=== PATIENT | male | born 1960 | race Caucasian/White ===

== ENCOUNTER → 2016-09-18 | Outpatient (CLI) | payer OTHER | LOC: BMCIMAGING 09:52 | PROVIDERS: ATTEND Internal Medicine | DX: M81.0 Age-related osteoporosis without current pathological fracture (principal) ==

== ENCOUNTER 2017-06-26 13:44 | Emergency (ER) | payer OTHER ==
[2017-06-26 13:52] VITALS: BP 138/82; PULSE 74; RESP 17; TEMP 98.2; O2SAT 98
[2017-06-26] MEDS ORDERED: TDAP ADULT 0.5 ML INJ (BOOSTRIX) IM ONE (14:36)
--- NOTE | 2017-06-26 15:39 | EDPHY ---
General Narrative: CHIEF COMPLAINT: Leg laceration HISTORY OF PRESENT ILLNESS: Patient complains of right calf laceration. He was walking in his home this morning when he stepped on the power cord on a jig saw, causing it to fall off a table and striking him in the right calf. Moderate bleeding from a laceration. Bleeding stopped after simple pressure. No numbness. Some tingling of the bottom of the right foot which has improved. No bony tenderness. No foreign body. Pain is minimal at rest. It is moderate when he walks. Tetanus status is in question no other associated complaints or modifying factors. TIME OF INJURY: Less than 2 hours prior to arrival TETANUS STATUS: Constant MEDICAL/SURGICAL/SOCIAL HISTORY: Asthma. Works as a director of software development REVIEW OF SYSTEMS: Ten systems reviewed and are negative unless otherwise noted in the HPI EXAMINATION General Appearance: Alert, no distress Head: normocephalic, atraumatic Cardiovascular: Pulses normal throughout. Symmetric DP pulses 2+. Symmetric PT pulses 2+. Brisk cap refill Neurological: A&O, sensory symmetric, strength symmetric. No evidence Skin: Warm and dry, no rash. No abrasions. 2.5 cm laceration on the right posterior calf. No bleeding. No foreign body. No surrounding cellulitis. Extremities: Tenderness over the right calf laceration. There is normal dorsiflexion and plantar flexion of the right ankle without deficit. Neuro intact distally. DIFFERENTIAL DIAGNOSES: Including but not limited to laceration, laceration with tendon injury, laceration complication, gastroc MDM: 2:30 p.m. Laceration to right posterior calf. Neuro intact. Minimal pain. No risk of foreign body. No bony injury or trauma. Area has been anesthetized. Uncertain about his tetanus status, thus we will update here. Proceed with irrigation and closure. 3:30 p.m. Simple laceration of the right calf that has been repaired without difficulty. Tolerated well. Fully ambulatory. Neuro intact pre and postprocedure. Daily wound care discussed. ED precautions discussed. Return to ER in 7-10 days days for suture removal. PROCEDURE: Laceration repair Consent: Verbal Location: Right calf Length of repair: 2.5 cm Complexity: Simple Layer involvement: Single Anesthesia: Local per 1% lidocaine with epinephrine. 7 mL Irrigation: Extensive Debridement: None Procedure description: Following good anesthesia, the wound was copiously irrigated. Wound bed was explored and there is no foreign body noted. No compromise of the calf muscle. Wound borders were approximated well with good hemostasis. Tolerated well without complication. Suture/Staple material: 4-0 Prolene. Five simple interrupted sutures Wound care: Routine as discussed Suture/Staple removal: 7-10 Days ED Precautions: Worsening pain. Erythema, edema, cyanosis, pallor, paresthesia or anesthesia. - History Smoking Status: Never smoked - Objective Vital Signs: Initial Vital Signs Temperature (C) 98.2 F 06/26/17 13:50 Heart Rate 74 06/26/17 13:50 Respiratory Rate 17 06/26/17 13:50 Blood Pressure 138/82 H 06/26/17 13:50 O2 Sat (%) 98 06/26/17 13:50 O2 Delivery Mode Room Air Allergies/Adverse Reactions: No Known Allergies Allergy (Verified 06/26/17 13:49) Home Medications: Medication Instructions Recorded Albuterol 06/26/17 Ambien 06/26/17 Departure - Departure Disposition: Home, Routine, Self-Care Clinical Impression: Laceration of right calf without complication Qualifiers: Encounter type: initial encounter Qualified Code(s): S81.811A - Laceration without foreign body, right lower leg, initial encounter Condition: Good Instructions: Laceration (ED), Care For Your Stitches (ED) Additional Instructions: 1. Daily wound care as discussed 2. ED precautions as discussed 3. Suture removal in 7-10 days Referrals: Kyler Dhillon MD [Primary Care Provider] - As per Instructions Physician,Emergency DeptMD [Medical Doctor] - As per Instructions (7-10 days for suture removal)
== END 2017-06-26 15:44 | disposition home or self-care (01) ==
PROC: 0HQKXZZ Repair Right Lower Leg Skin, External Approach (ICD-10-PCS; principal; 2017-06-26)
DX: S81.811A Laceration without foreign body, right lower leg, initial encounter (principal); Z23 Encounter for immunization; W01.198A Fall on same level from slipping, tripping and stumbling with subsequent striking against other object, initial encounter; Y99.8 Other external cause status; Y93.89 Activity, other specified

== ENCOUNTER 2018-01-03 19:07 | Inpatient (IN) | payer OTHER ==
[2018-01-03] MEDS ORDERED: LORazepam 2 MG/ML INJ ONE (19:13)
[2018-01-03] MEDS ORDERED: NS 1,000 ML IV ONE ×3 (19:15→20:50)
[2018-01-03] MEDS ORDERED: LORazepam 2 MG/ML INJ IVP ONE (19:20)
--- NOTE | 2018-01-03 19:27 | EDPHY ---
H & P Time Seen by Provider: 01/03/18 19:16 HPI/ROS: HPI Syncope, altered mental status. 57-year-old male by ambulance emergently. Patient was at home reportedly sitting on a couch in the living room working on a computer. His had just asked him If pasta was okay for dinner. He replied "yes, pasta would be great" . His states there was nothing abnormal about his response or mental status.His heard him suddenly fall to the ground. She heard a thump and went to his side. He was slumped over on his side and not responding to her. EMS reported on arrival patient was tachypneic and had a blood pressure of 60/ 30. They report he was markedly diaphoretic. No history of recent trauma other than the fall. Patient denies any ingestion. Reports that he drinks alcohol only occasionally. Denies any IV drugs or street drugs. No known history of seizures. He complains of lower back pain which he has had chronically. He also states that he is very thirsty. He states that he was working out in the yard in the hot sun earlier. He states that he has been drinking lots of water today but is very thirsty. IV established by EMS, left antecubital. Patient given approximately 1 L of IV normal saline on the way to the emergency department. EMS [id number] glucose 137. ROS: Constitutional: No fever, no chills. As above. Eyes: No discharge. No changes in vision. ENT: No sore throat. No nasal congestion or rhinorrhea. Respiratory: No cough. No shortness of breath. Cardiac: No chest pain, no palpitations. Gastrointestinal: No abdominal pain, no vomiting, no diarrhea. Genitourinary: No hematuria. No dysuria or increased frequency with urination. Musculoskeletal: As above. No neck pain. No myalgias or arthralgias. Skin: No rashes. Neurological: No headache. No focal weakness or altered sensation. Past medical history: Chronic lower back pain, asthma. No new medications. Social history: Drinks occasionally. Denies IV drugs or street drugs. with son. Family are apparently on their way. Physical Exam: General Appearance: Alert, mumbling nonsensically, diaphoretic, intermittently asking for water but easily redirected and will respond to questions appropriately. This patient appears well-hydrated and well-nourished. Head: Normocephalic atraumatic. Face: Facial bones are stable on palpation. Eyes: Pupils equal and round and reactive to light at 3-2 mm bilaterally, no pallor or injection. No lid erythema or edema. No photophobia. No nystagmus. ENT, Mouth: Mucous membranes moist. Dentition is intact. No malocclusion of the jaw. Right-sided tongue laceration with dried blood on his lips noted. Non- suturable. Pharynx is clear. The bilateral nasal canals are clear. No septal hematoma. Respiratory: There are no retractions, lungs are clear to auscultation with good air movement bilaterally. Chest wall is stable to AP and lateral palpation. Cardiovascular: Regular rate and rhythm. Holosystolic murmur noted. Gastrointestinal: Abdomen is soft and nontender, no masses, bowel sounds present. Neurological: Motor sensory function is grossly intact. No saddle anesthesia. No bowel or bladder incontinence. Patient is neurologically intact in all myotomes in dermatomes of the bilateral lower extremities. Cranial nerves are grossly normal. Skin: Warm and dry, no rashes. No lacerations, abrasions or contusions. Musculoskeletal: Neck is supple and nontender. No pain on flexion of his neck. The trachea is midline. No midline cervical, or sacral tenderness on palpation. Tenderness on palpation at T 12 L1 at the midline. No bony step offer deformity noted on palpation of the [place]. No significant edema or ecchymosis. Lumbar and thoracic spine or otherwise nontender. No flank tenderness on palpation. Extremities are symmetrical, full range of motion. All joints in the bilateral upper and bilateral lower extremities range without pain or impingement. No tenderness on palpation of the long bones in the bilateral upper and bilateral lower extremities. Psychiatric: No agitation. No depression. Database: EKG: EKG time is 7:33 p.m.; EKG shows a narrow complex normal sinus rhythm with a ventricular rate of 92. Nonspecific intraventricular conduction delay noted. Borderline ST depression noted diffuse leads. The SC, QRS, QT intervals are within normal limits. There are no ST-T wave changes indicative of ischemic or injury pattern. No evidence of right heart strain. Interpreted by me. Imaging: Chest x-ray AP portable supine; the cardiac mediastinal silhouette is unremarkable. No evidence of infiltrate or pneumothorax. No acute cardiopulmonary disease process noted. Interpreted by me. CT head without contrast: No acute pathology. Results were discussed with staff radiologist Dr. Gabriele Little. LS spine x-ray series: Acute L1 compression fracture and severe osteoporosis. Results discussed with staff radiologist Dr. Gabriele Little. Procedures: Emergency department course: After initial assessment in trauma [facility] 1, the patient was sent for noncontrast CT scan of his head. Likely etiology of presentation/altered mental status is grand mal seizure. Patient will be given 1.5 g of IV Keppra. IV Ativan at his bedside to be used acutely. 7:30 p.m., my interpretation of his CT scan brain without contrast is negative. There is some motion artifact. No obvious hemorrhage. I-STAT electrolytes, and hematocrit are unremarkable. No hypoglycemia or hyponatremia. Patient was given 1 mg of IV Ativan and CT secondary to agitation and movement. On arrival back to the trauma [facility] he was given 25 mcg of IV fentanyl. He will be given 1.5 g of IV Keppra as well. EKG obtained and reviewed by myself. 7:45 p.m., vital signs reviewed. Pulse oximetry 99% on room air. 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 7:50 p.m., patient re-evaluated. Still complaining of being thirsty and complaining of lower back pain. Patient will be given 50 mcg of IV fentanyl for his back pain. He redirects easily and responds to questions appropriately. His and son are now present in the emergency department. His tells me that he was acting appropriately prior to his inciting event. She tells me that he had an episode of syncope while hiking [place] about a year ago and had a cardiac workup which was unremarkable. 8:10 p.m., patient given another 50 mcg of IV fentanyl for back pain. Lumbar spine x-ray results and diagnosis discussed with him and family. and son are at bedside. No change in the patient's neurologic condition. I discussed admission. 8:25 p.m., spoke with hospitalist Dr. Valenzuela. Case discussed in detail. She accepts this patient for admission. Patient's repeat neurologic assessment is nonfocal. No lower extremity deficits. No bowel or bladder incontinence. No saddle anesthesia. Patient admitted to the step-down unit in stable condition. Differential Diagnosis: The differential diagnosis on this patient includes but is not limited to hypoglycemia, hyponatremia, grand mal seizure, lumbar compression fracture, vasovagal syncope, dehydration. Meningitis, encephalitis, intracranial hemorrhage unlikely. This represents a partial list of diagnoses considered. These considerations are based on history, physical exam, past history, reassessment and diagnostic testing. Smoking Status: Never smoked Constitutional: Initial Vital Signs Heart Rate 120 H 01/03/18 19:10 Respiratory Rate 18 01/03/18 19:10 Blood Pressure 82/42 L 01/03/18 19:10 O2 Sat (%) 92 01/03/18 19:10 O2 Delivery Mode Nasal Cannula O2 (L/minute) 2 Allergies/Adverse Reactions: No Known Allergies Allergy (Verified 06/26/17 13:49) Home Medications: Medication Instructions Recorded Fluticasone/Salmeterol [Advair Hfa 2 puffs IH BID PRN 06/26/17 115-21 Mcg Inhaler] Zolpidem Tartrate [Ambien] 10 mg PO HS 06/26/17 Acetaminophen [Acetaminophen Extra 500 mg PO Q4H PRN 01/03/18 Strength] Cetirizine [ZyrTEC 10 mg (*)] 10 mg PO DAILY PRN 01/03/18 Oxymetazoline HCl [Afrin Nasal 1 spray EACHNARE BID PRN 01/03/18 [place] (OTC)] Phenylephrine HCl [Nasal 10 mg PO BID PRN 01/03/18 Decongestant PE] Pseudoephedrine HCl [Sinus 12 Hour] 120 mg PO BID PRN 01/03/18 diphenhydrAMINE [Benadryl 25 MG 25 mg PO Q6H PRN 01/03/18 (*)] Medical Decision Making - Data Points Laboratory Results: Laboratory Results 01/03/18 19:35 01/03/18 19:35 Medications Given: Acetaminophen (Tylenol) 650 mg PO Q4HRS PRN PRN Reason: Pain, Mild/Fever, Can Take PO Stop: 07/02/18 21:28 Last Admin: 01/04/18 09:20 Dose: 650 mg Levetiracetam 750 mg/ Sodium (Chloride) 50 mls @ 200 mls/hr IV BID TOM Stop: 07/03/18 08:59 Last Admin: 01/04/18 09:09 Dose: 50 mls Sodium Chloride (Ns) 1,000 mls @ 125 mls/hr IV CONT TOM Stop: 07/02/18 21:29 Last Admin: 01/04/18 05:52 Dose: 1,000 mls Oxycodone HCl (Oxycodone Ir) 5 - 10 mg PO Q3HRS PRN PRN Reason: Pain, Severe Able to Take PO Stop: 01/13/18 21:28 Last Admin: 01/04/18 09:20 Dose: 5 mg Discontinued Medications Fentanyl (Sublimaze) 25 mcg IVP EDNOW ONE Stop: 01/03/18 19:31 Last Admin: 01/03/18 19:30 Dose: 25 mcg Fentanyl (Sublimaze) 50 mcg IVP EDNOW ONE Stop: 01/03/18 20:51 Last Admin: 01/03/18 20:15 Dose: 50 mcg Hydromorphone/Sodium Chloride (Hydromorphone) 0.2 - 0.4 mg IVP Q2H PRN PRN Reason: Pain, Severe Unable to Take PO Stop: 01/13/18 21:28 Last Admin: 01/04/18 07:37 Dose: 0.4 mg Levetiracetam (Keppra (Premix)) 100 mls @ 400 mls/hr IV EDNOW ONE Stop: 01/03/18 19:45 Last Admin: 01/03/18 19:50 Dose: 100 mls Levetiracetam (Keppra (Premix)) 100 mls @ 400 mls/hr IV EDNOW ONE Stop: 01/03/18 19:45 Last Admin: 01/03/18 19:51 Dose: 100 mls Sodium Chloride (Ns) 1,000 mls @ 0 mls/hr IV ONCE ONE; TKO PRN Reason: Protocol Stop: 01/03/18 20:51 Last Admin: 01/03/18 20:05 Dose: 1,000 mls Sodium Chloride (Ns) 1,000 mls @ 0 mls/hr IV EDNOW ONE; Wide Open PRN Reason: Protocol Stop: 01/03/18 19:16 Last Admin: 01/03/18 19:25 Dose: 1,000 mls Sodium Chloride (Ns) 1,000 mls @ 0 mls/hr IV EDNOW ONE; Wide Open PRN Reason: Protocol Stop: 01/03/18 19:21 Last Admin: 01/03/18 19:15 Dose: 1,000 mls Lorazepam (Ativan Injection) 1 mg IVP EDNOW ONE Stop: 01/03/18 19:21 Last Admin: 01/03/18 19:48 Dose: 1 mg Ondansetron HCl (Zofran) 4 mg IVP EDNOW ONE Stop: 01/03/18 19:50 Last Admin: 01/03/18 19:50 Dose: 4 mg Point of Care Test Results: Chemistry 01/03/18 19:38 POC Troponin I 0.00 ng/mL ng/mL (0.00-0.08) Departure - Departure Disposition: [facility] ([place], [place]) Inpatient Acute Clinical Impression: Seizure, Altered mental status, Compression fracture of L1 lumbar vertebra, Osteoporosis
[2018-01-03] MEDS ORDERED: fentaNYL 100 MCG/2 ML INJ IVP ONE ×2 (19:30→20:50)
[2018-01-03] MEDS ORDERED: fentaNYL 100 MCG/2 ML INJ ONE (19:30)
[2018-01-03] MEDS ORDERED: levETIRAcetam 1000MG/NACL 100 ML IV ONE (19:31)
[2018-01-03] MEDS ORDERED: levETIRAcetam 500MG/NACL 100 ML IV ONE (19:31)
--- NOTE | 2018-01-03 19:36 | CPEKG ---
Heart Rate: Invalid QTC Interval: 0 P Merritt: 0 QRS Merritt: 0 EKG Severity - DEFECTIVE ECG - EKG Impression: ALL 12 LEADS ARE MISSING Electronically Signed By: Fidelia Butterfield 03-Jan-2018 23:08:11
[2018-01-03] MEDS ORDERED: ONDANSETRON 4 MG/2 ML VIAL ONE (19:38)
[2018-01-03] MEDS ORDERED: ONDANSETRON 4 MG/2 ML VIAL IVP ONE (19:49)
[2018-01-03 20:01] LABS: PLATELET COUNT 276 10^3/uL (150-400)
[2018-01-03 21:01] LABS: INR 1.34 (0.83-1.16); PROTIME(PATIENT) 16.8 SEC (12.0-15.0)
[2018-01-03] MEDS ORDERED: PROMETHAZINE HCL 25 MG/ML INJ IVP PRN (21:29)
[2018-01-03] MEDS ORDERED: ONDANSETRON DISINTEGRATING 4 MG TAB PO PRN (21:29)
[2018-01-03] MEDS ORDERED: ONDANSETRON 4 MG/2 ML VIAL IVP PRN (21:29)
[2018-01-03] MEDS ORDERED: CETIRIZINE 10 MG TAB PO PRN (21:36)
[2018-01-03] MEDS ORDERED: Fluticasone/Salmeterol [Advair Hfa 115-21 Mcg Inhaler] IH PRN (21:36)
[2018-01-03] MEDS: HYDROmorphone HCL/NS 0.5 MG/ML SYR IVP PRN (21:44)
[2018-01-03] MEDS: NS 1,000 ML IV SCH (21:54)
[2018-01-03] MEDS: oxyCODONE IR 5 MG TAB PO PRN (22:15)
--- NOTE | 2018-01-03 23:23 | GHP ---
[f rep st] HISTORY AND PHYSICAL DATE OF ADMISSION: 01/03/2018 CHIEF COMPLAINT: Loss of consciousness. HISTORY: This is a 57-year-old man, past medical history of asthma and allergies, who presents follo wing a syncopal versus seizure event at home. The patient's provides much of the history as lindsey aguirre is somnolent and distracted by significant back pain. Apparently, the patient was working on [employer]. was in the other room when she heard him fall to the ground. When she arrived at [facility], she felt that his breathing was labored and he was not responsive. She called EMS, who note d a blood pressure of 60/30 on arrival. He appeared diaphoretic and rambling. At this point, the concetta miranda is complaining largely of lower back pain, which he has chronically but which is currently much more severe. He notes that he was working out in the yard and feels that he probably became dehydra leatha. He states he has never had a seizure before. He is not heavy drinker, per his and his rep ort. He did bite his tongue significantly, and therefore there is concern for possible seizure havin g occurred. At this point, patient is only complaining of severe back pain, but is somnolent likely due to pain medications received in the ER. PAST MEDICAL HISTORY: 1. Includes reactive airways disease. 2. Seasonal allergies. PAST SURGICAL HISTORY: None. FAMILY HISTORY: Parents are . Both of old age. SOCIAL HISTORY: Patient is a never smoker. He drinks alcohol occasionally. No illicits. He is mar ried and has 2 children. REVIEW OF SYSTEMS: 10-point review of systems obtained, negative except as per HPI. HOME MEDICATIONS: 1. Afrin nasal spray. 2. Cetirizine. 3. Sudafed. 4. Tylenol. 5. Phenylephrine nasal spray. 6. Benadryl. 7. Advair. 8. Zolpidem. ALLERGIES: No known drug allergies. PHYSICAL EXAMINATION: VITAL SIGNS: BP 107/64, heart rate 92, respiratory rate 16, O2 sats 96% on ro om air, temperature is 36.6. GENERAL APPEARANCE: Well-developed/well-nourished man. He is somnolen t. EYES: Anicteric. Pupils equal, round, reactive to light. HEENT: Oropharynx with blood in the mouth and bite kruse on the side of the tongue. CARDIOVASCULAR: Regular rate and rhythm. No MRG. PULMONARY: CTA bilaterally. ABDOMEN: Soft, nontender. Positive bowel sounds. EXTREMITIES: No cl ubbing, cyanosis, or edema. SKIN: Warm, dry, well perfused. NEURO/PSYCH: Oriented and appropriate but somnolent. CLINICAL DATA: Labs reviewed, significant for white blood cell count 16.25, hematocrit 39.3. Coags unremarkable. Chemistry notable for a bicarb of 20, glucose of 136. Chest x-ray, personally reviewed and interpreted, shows no acute findings. EKG, personally reviewed and interpreted, shows all leads missing. Telemetry monitoring appeared consistent with sinus rhythm . Head CT is unremarkable. Lumbar spine x-ray shows L1 fracture appears acute with 50% loss of heig ht. ASSESSMENT AND PLAN: A 57-year-old man with past medical history of asthma, presenting status post s yncope versus seizure. 1. Syncope versus seizure. Unclear by history, but the patient's did not notice any seizure-li ke activity. He did bite his tongue, however. He was very hypotensive on Emergency [facility] Services arrival, and certainly syncope could have been secondary to that. At this time, we will monitor on telemetry. Will obtain serial troponins. We will ask Neurology to consult in the morning. He has b een started on Keppra, which will be continued for the time being. 2. Hypotension. The patient reports that he had been dehydrated working in the yard all day. He is fluid responsive and currently blood pressure has been stabilized. He is not on any blood pressure- lowering medications chronically. 3. L1 compression fracture. This does appear to be acute and occurring status post his fall. We wi ll have Physical Therapy, Occupational Therapy involved and monitoring pain overnight. The patient m ay require Neurosurgery consultation if pain cannot be controlled. 4. Osteoporosis. The patient has known osteoporosis dating back from a DEXA scan and now compressio n fracture as per above. This is quite unusual in this relatively young male. Would recommend patie nt have followup with Endocrinology after discharge for ongoing management. DISPOSITION: 1. Observation status. Suspect patient will require less than 48 hours stay for evaluation and car gement of above. 2. Patient is new to my care. Old records reviewed, summarized as per HPI and past medical history. Care plan reviewed with ER physician as per above. Further history obtained from patient's , wilner ingram at bedside. /[id number]/MODL
[2018-01-04] MEDS: HYDROmorphone HCL/NS 0.5 MG/ML SYR IVP PRN ×4 (01:07→16:40)
[2018-01-04] MEDS: oxyCODONE IR 5 MG TAB PO PRN ×6 (01:07→23:29)
[2018-01-04] MEDS: NS 1,000 ML IV SCH ×2 (05:52→14:49)
[2018-01-04] MEDS: levETIRAcetam 750 MG in NS (SYRINGE) 50 ML IV SCH ×2 (09:09→21:18)
[2018-01-04] MEDS: ACETAMINOPHEN 325 MG TAB PO PRN ×3 (09:20→18:52)
--- NOTE | 2018-01-04 10:05 | GCON ---
[f rep st] CONSULTATION DATE OF CONSULTATION: 01/04/2018 REASON FOR CONSULTATION: Low back pain with compression fracture after a fall. HISTORY OF PRESENT ILLNESS: The patient is a 57-year-old gentleman who was admitted to the medicine service yesterday after his heard him fall to the ground. At that point, she felt like his breathing was labored and not responsive. He does have a past medical history significant for asthma and allergies. There was some question about a syncopal versus seizure event at home. When he arrives to the ER, his main complaint was of lower back pain, which he has chronically, but this is more severe. According to the ED notes, the patient was working in his yard and felt dehydrated yesterday. The reason seizure was speculated due to him biting his tongue significantly. He does not have a prior history of seizures. REVIEW OF SYSTEMS: Negative other than what is stated in the HPI. Please see pertinent negatives and positives. Patient denies any leg pain, numbness, tingling, or weakness, any loss of bowel or bladder control. PAST MEDICAL HISTORY: Significant for asthma, allergies, including seasonal reactive airway disease. PAST SURGICAL HISTORY: None. FAMILY HISTORY: Denies any family history of cardiac disease, diabetes, cancers , or strokes. His parents both of old age. SOCIAL HISTORY: The patient has never smoked. He has an alcoholic beverages occasionally. He does not drink. He does not use any illicit drugs. He is with 2 children. HOME MEDICATIONS: Include Sudafed, Tylenol, phenylephrine nasal spray, Benadryl , Advair, Ambien, cetirizine, Afrin nasal spray. ALLERGIES: No known drug allergies. PHYSICAL EXAMINATION: VITAL SIGNS: BP 113/68, heart rate is 76, respiratory he is 96% on 1 L nasal cannula. GENERAL: The patient is in no acute distress. NEUROLOGIC: He is alert and oriented x3, answers questions appropriately. His affect appropriate to given situation. Cranial nerves 2-12 are grossly intact. EOMI and PERRLA. The patient is a 5/5 and equal in his upper extremities and his lower extremities, including his iliopsoas, hamstrings, quadriceps, plantar flexion, dorsiflexion, and EHL. Sensation is intact in bilateral upper and bilateral lower extremities. Reflexes: Patellar 2+ bilaterally. Negative clonus. Negative Babinski. DIAGNOSTIC REVIEW: Patient underwent a lumbar spine x-ray, which demonstrated moderate appearing L1 vertebral fracture with approximately 50% height loss and mild to incompletely evaluated dorsal retropulsion. DISCUSSION/DECISION-MAKING: The patient is a 57-year-old gentleman who sustained a fall yesterday and who now has an L1 compression fracture. The patient does not have any radicular symptoms and his back pain is improved somewhat with medications. Given his fracture, we would recommend a Nesha brace when he is up and out of bed. That order has been placed. We will obtain some standing x-rays in the brace to ensure no change in this fracture. Would recommend q.4 hours neuro checks, optimization of pain management. Again , the patient was seen in conjunction with Dr. Lucas Betancourt this morning. /[id number]/MODL MTDD
[2018-01-04] MEDS: CYCLOBENZAPRINE 10 MG TAB PO PRN ×2 (10:49→16:40)
--- NOTE | 2018-01-04 10:51 | ECHO ---
[email or web address] [address] [address] Main: [phone] Fax: Transthoracic Echocardiogram Name: BRANDIE VALDEZ MR#: [id number] Study Date: 01/04/2018 Study Time: 10:03 AM Date of : 1960 Age: 57 year(s) Height: 180.3 cm (71 in.) Weight: 91.63 kg (202 lb.) BSA: 2.12 m2 Gender: Male Examination: Echo Indication: Cardiac: syncope, elevated troponin Image Quality: Contrast: Requested by: Genevieve Jean BP: 99 mmHg/61 mmHg Heart Rate: Rhythm: Indication: Cardiac: syncope, elevated troponin Procedure Staff Trench Pipe Layer: Niki Pedraza [facility] Reading Physician: Marcella Green MD Requesting Provider: Conclusions: Normal size left ventricle. No LV hypertrophy. Normal global systolic LV function. EF is 75 %. No regional wall motion abnormality. Grade 1 diastolic dysfunction (abnormal relaxation). Normal size right ventricle. Normal RV function. Trivial to mild mitral regurgitation. Mild tricuspid regurgitation is present. Right ventricular systolic pressure measures 42mmHg. The pulmonary artery pressure is mildly increased. Compared with 09/02/2011 no significant change Measurements: Chambers Valvular Assessment AV/MV Valvular Assessment TV/PV Normal Normal Normal Name Value Range Name Value Range Name Value Range Ao Ria (MM): 3.4 cm (2.2 cm-3.7 AV Vmax: 1.44 m/s (1 m/s-1.7 TR Vmax: 3.05 mm/s ( - ) cm) m/s) TR PGmax: 37 mmHg ( - ) IVSd (2D): 1.0 cm (0.6 cm-1.1 AV maxP mmHg ( - ) syst. PAP: 42 mmHg ( - ) cm) LVOT Vmax: 1.11 m/s (0.7 m/s-1.1 PV Vmax: 0.77 m/s (0.6 m/s-0.9 LVDd (2D): 4.6 cm (4.2 cm-5.9 m/s) m/s) cm) MV E Vmax: 0.61 m/s ( - ) PV PGmax: 2 mmHg ( - ) LVDs (2D): 2.6 cm (2.1 cm-4 MV A Vmax: 0.64 m/s ( - ) cm) MV E/A: 0.95 ( - ) LVPWd (2D): 0.9 cm (0.6 cm-1 cm) LVEF (BP): 75 % (>=55 %) Patient: BRANDIE VALDEZ Study Date: 01/04/2018 Page 1 of 2 10:03 AM RVDd(2D): 3.3 cm (1.9 cm-3.8 cmmm) Continued Measurements: Chambers Valvular Assessment AV/MV Valvular Assessment TV/PV Name Value Name Value Name Value LADs: 3.3 cm MV DecTime: 285 m/s CVP (est.): 5 mmHg LADs Lon.6 cm MV E' Septal: 0.08 m/s LA Area: 19.0 cm2 MV E/E' Septal: 7.50 LA Volume: 51 ml MV E/E' Lateral: 5.60 LA Volume Index: 24.1 ml/m2 RA Area: 14.6 cm2 Additional Vessels Name Value Ao Ascendin.0 cm Findings: Left Ventricle: Normal size left ventricle. No LV hypertrophy. Normal global systolic LV function. EF is 75 %. No regional wall motion abnormality. Grade 1 diastolic dysfunction (abnormal relaxation). Right Ventricle: Normal size right ventricle. Normal RV function. Left Atrium: The left atrium is normal in size. Right Atrium: The right atrium is normal in size. Mitral Valve: The mitral valve is normal in appearance and function. Trivial to mild mitral regurgitation. No mitral stenosis is present. redundant chordae seen. Aortic Valve: The aortic valve is tri-leaflet and functions normally. There is no aortic valve regurgitation. No aortic valve stenosis is present. Tricuspid Valve: The tricuspid valve is normal in appearance and function. Mild tricuspid regurgitation is present. Right ventricular systolic pressure measures 42mmHg. The pulmonary artery pressure is mildly increased. Pulmonic Valve: The pulmonic valve is normal in appearance and function. There is no pulmonic regurgitation seen. Aorta: The aorta is normal. Normal size aortic root measuring 3.4 cm. Normal size ascending aorta measuring 3.0 cm. IVC: The IVC is normal sized. Pericardium: No pericardial effusion. (No Signature Object) Patient: BRANDIE VALDEZ Study Date: 01/04/2018 Page 2 of 2 10:03 AM [id number]
--- NOTE | 2018-01-04 11:21 | HOSPPROG ---
Hospitalist Progress Note Assessment/Plan: 57-year-old with a history of reactive airways disease and seasonal allergies is admitted with a syncope. This was unwitnessed, he did injure himself and that he sustained a L1 compression fracture and had some lacerations in his mouth. He is doing well today. There was some confusion post syncope is unclear if this was related to a postictal event or possibly he had significantly low blood pressure when the EMT arrived. # syncope: Patient with essentially normal echocardiogram except for mild pulmonary hypertension and elevated troponins. He was mildly symptomatic prior to the event with some lightheadedness, no palpitations or chest pain. Unclear if this is the syncopal event or possible seizure. Did have elevated troponins that are indeterminate and will ask Cardiology to weigh in and decide if he needs any further risk stratification prior to discharge. He does admit to a history of dizziness whenever he over exerts himself. * Patient discussed with Cardiology * Echocardiogram ordered * Continue to cycle troponins still improving * No history of heart disease # reactive airways disease, patient lungs clear at this time will follow symptoms # L1 compression fracture, appreciate neurosurgery evaluation will assess pain level today and decide if needs further imaging. Jewitt brace has been ordered. # mild pulmonary hypertension noted on echo with a RVSP of 42. Unclear if this is related to his reactive airways disease. He apparently had a echo done previously and this is stable. Subjective: Discussed in multi-disciplinary rounds, complains of severe pain in his L1 area otherwise no chest pain shortness of breath or palpitation Objective: Vital Signs Temp Pulse Resp BP Pulse Ox 36.2 C 76 13 113/68 96 01/04/18 04:00 01/04/18 08:00 01/04/18 08:00 01/04/18 08:00 01/04/18 08:00 01/03/18 01/04/18 01/05/18 05:59 05:59 05:59 Intake Total 1877 Balance 1877 PT 16.8 SEC (12.0-15.0) H 01/03/18 20:45 INR 1.34 (0.83-1.16) H 01/03/18 20:45 - Physical Exam Constitutional: no apparent distress Eyes: PERRL, EOMI Ears, Nose, Mouth, Throat: moist mucous membranes Cardiovascular: regular rate and rhythym Respiratory: no respiratory distress, clear to auscultation Gastrointestinal: normoactive bowel sounds, soft, non-tender abdomen Genitourinary: no bladder fullness Skin: warm Musculoskeletal: pain with ROM, other (spinal tenderness) Neurologic: AAOx3 Psychiatric: interacting appropriately, not anxious ICD10 Worksheet Patient Problems: Problems Problem Status Onset Seizure Acute Altered mental status Acute Compression fracture of L1 lumbar vertebra Acute Osteoporosis Acute
--- NOTE | 2018-01-04 11:48 | PDMN ---
Medical Necessity Medical necessity: C/M review: Patient meets INPT criteria under [facility] M-340 Syncope, M-327 Seizure: Acute syncope - unclear if syncopal event or possible seizure of unclear etiology, acute L1 compression fracture, ongoing severe pain in L1 area, WBC 16.25, elevated troponins 0.135, 0.229, mild pulmonary hypertension noted on echocardiogram with RVSP of 42, requiring case discussion with Cardiology by Hospitalist, Neurosurgery consult, planned Nesha brace, planned Neurology consult, continue to cycle troponins ongoing IV Keppra BID, IV NS 125 ml/hr. infusion, cardiac monitoring, pulse oximetry, acute inpt PT/OT/ST, comorbid syncopal episode with unwitnessed fall 01/04/2018 prior to this admission, reactive airways disease. MD anticipates > 2 MN LOS for ongoing med nec for eval and TX of above.
--- NOTE | 2018-01-04 11:58 | CPEKG ---
Heart Rate: 75 RR Interval: 800 P-R Interval: 176 QRSD Interval: 98 QT Interval: 396 QTC Interval: 443 P Neely: 50 QRS Neely: 22 T Wave Neely: 17 EKG Severity - NORMAL ECG - EKG Impression: SINUS RHYTHM Electronically Signed By: Aki Melendez 04-Jan-2018 18:05:28
--- NOTE | 2018-01-04 11:58 | NEUROPROG ---
Assessment: HOSPITAL NEUROLOGY CONSULT REQUESTING: Elvia Mcleod MD REASON: syncope HPI: 57 year old right-handed man with a history of asthma, seasonal allergies who presented to our ED yesterday, 01/03, after en episode of abrupt LOC. Patient had not been feeling well yesterday. He states he was working in the yard and felt lightheaded and dizzy. He notes 8 years of exertional lightheadedness. He went back inside the house to rest on the couch. He was doing some work on his computer. He then felt worsening of his lightheadedness , with associated sweating and tunneling of his vision. He then abruptly lost awareness. His was in the adjacent room and heard a "thud" and immediately went to the living room to find the patient on the floor next to the couch. He was mumbling. No convulsive activity was witnessed. Patient states he was able to hear what was happening around him, but unable to muster the energy to respond. EMS was summoned. His BP was found to be 60/30. He was transported to our ED. In the ED he was still hypotensive with BP 82/42 and he was tachycardic and diaphoretic. He was still encephalopathic. This did clear over the ensuing hours. He was complaining of severe low back pain and X-ray did show an acute L1 compression fracture. Levetiracetam was loaded and he is on 750mg BID maintenance. Since admission to the floor, he continues to have some relatively low BP measures. His troponins have been rising. TTE was done and showed no major structural issues. He is still in pain from his L1 fracture. He is mentating clearly. He denies prior history of seizure and he denies epilepsy risk factors including TBI, intracranial instrumentation, [employer] HAND infection, collagen vascular disease. He does endorse frequent exertional lightheadedness over the last 8 years. No CP, palpitations, SOB. He does note a prior stress test for these exertional symptoms which he states was normal. ROS: As per the HPI, otherwise a complete 12 point ROS was performed and is negative ALLERGIES AND MEDS: As recorded in the EMR - reviewed and reconciled PFSH: As per the intake H&P by Dr. Mcleod from 01/03 EXAM: VS reviewed in EMR GEN: WDWN laying in NAD HEENT: NCAT, sclera anicteric, conjunctiva not injected, MMM, oropharynx clear, no scalp tenderness, right tongue laceration noted NECK: supple, nontender, no meningismus CV: RRR s1 s2 wo m/r/c/g. Carotid pulses 2+ wo bruit NEURO: MS: awake, alert, oriented to all spheres. Speech nondysarthric. No language disturbance. Follows commands. Attends to both sides. Recent/remote memory grossly intact. Mood euthymic. Good fund of knowledge. CN: pupils 3mm round and reactive. Unable to visualize fundi. VFF. Primary gaze centered. Full ocular motility. Facial sensation preserved. Face symmetric. Hearing grossly intact to finger rub. Palatoglossal movements intact. Shoulder shrug and head turn strong. MOTOR: normal bulk/tone. No adventitial movements. Full power throughout, though some giveway at times due to provocation of back pain. SENSORY: intact LT/PP in all extremities. No extinction. COORD: no ataxia FN/HS. Royal preserved. REFLEX: plantars down. No clonus. DTRS 2/4. GAIT: unable to assess due to back pain DATA REVIEW: Labs reviewed in EMR PERSONALLY INTERPRETED RESULTS AND DATA: CT head wo - motion artifact, no obvious structural lesion IMPRESSION AND RECOMMENDATIONS: // SYNCOPE VS. SEIZURE // HX OF RECURRENT PRESYNCOPE // TROPONINEMIA // HYPOTENSION // L1 COMPRESSION FRACTURE Patient with an episode of abrupt onset LOC with postictal confusion and evidence of lateralizing tongue laceration. Labs did show leukocytosis and decreased bicarb. WBCs trending down, CMP pending. Event could have been a generalized convulsion. Given the hypotension, tachycardia and troponinemia, this raises the possibility of an insular lesion, though persistent cardiovascular dysfunction is less likely to occur with this seizure phenomenon. Will check MRI brain wow. Continue current dosing of levetiracetam for now. Continue seizure precautions. Another possibility would be a primary cardiovascular event resulting in profound cerebral hypoperfusion and release phenomenon of seizure. This is more likely to happen with hypoxic-ischemic injury, but could also happen with more transient hypoperfusion. Cardiology to evaluate today. If MRI brain and cardiology evaluation unyielding, may consider EEG evaluation. Neurosurgery on board for compression fracture. Will continue to follow. Dr. Hill to assume care of the neurology service tomorrow. Objective: Vital Signs Temp Pulse Resp BP Pulse Ox 36.2 C 76 13 113/68 96 01/04/18 04:00 01/04/18 08:00 01/04/18 08:00 01/04/18 08:00 01/04/18 08:00 01/03/18 01/04/18 01/05/18 05:59 05:59 05:59 Intake Total 1877 Balance 1877 PT 16.8 SEC (12.0-15.0) H 01/03/18 20:45 INR 1.34 (0.83-1.16) H 01/03/18 20:45 Allergies/Adverse Reactions: No Known Allergies Allergy (Verified 06/26/17 13:49)
[2018-01-04 12:07] LABS: PLATELET COUNT 212 10^3/uL (150-400)
--- NOTE | 2018-01-04 13:30 | GCON ---
[f rep st] CONSULTATION CARDIOLOGY CONSULTATION DATE OF CONSULTATION: 01/04/2018 PRIMARY CARE: Dr. Kyler Dhillon CHIEF COMPLAINT: Syncope and positive troponin. HISTORY OF PRESENT ILLNESS: We were asked by Dr. Jean to visit with the patient. The patient is a pleasant 57-year-old male with a long history of exertional lightheadedness. He reports having previously had a stress test at [facility] and he also did have a tilt-table test notable for hypotension here at the hospital in 2011. He has also had echocardiograms, which were fairly unremarkable other than mild pulmonary hypertension. Yesterday and the day before, he had not been feeling very well. Describes fatigue and achiness. He was doing yard work yesterday and admits that it was hot and he might have been dehydrated. He then went inside and sat on the couch and started to feel lightheaded. He reports lying down and putting his feet up because he felt so lightheaded. The next thing he knew he was on the floor and his was calling 911. According to chart review, the heard a thud and he fell to the ground. When EMS arrived, his systolic blood pressure was 60. He responded to IV fluids. He apparently bit his tongue as well. He denies any prodrome of chest pain or palpitations. He has never had exertional palpitations, but sometimes has palpitations when at rest. He does exercise fairly regularly, but has reduced the intensity of his exercise due to a past historyof exertional lightheadedness with heavier exercise. He also reports a long history of intermittently getting hives with heavier exercise. His fall yesterday was complicated by an L1 compression fracture for which Neurosurgery has recommended conservative management. He also had a troponin of 0.2. Upon my evaluation this morning, he is not having chest discomfort or palpitations. ALLERGIES: No known drug allergies. PAST MEDICAL HISTORY: 1. Intermittent low back pain. 2. Reactive airways disease. 3. Seasonal allergies. OUTPATIENT MEDICATIONS: Tylenol, Zyrtec, Benadryl p.r.n., Advair, Afrin, phenylephrine, and zolpidem. SOCIAL HISTORY: The patient drinks alcohol in moderation. Does not smoke cigarettes. He is . FAMILY HISTORY: Parents at older ages. REVIEW OF SYSTEMS: A full 10-point review of systems was performed and is negative, except that which is outlined above. PHYSICAL EXAMINATION: VITAL SIGNS: Blood pressure is 123/73, oxygen saturation is between 89 and 96% on 1-2 L nasal cannula. He is afebrile. Heart rate 84, respiratory rate is 17. GENERAL: He is a somewhat ill- appearing middle-aged male. He is intermittently somnolent, but able to answer all my questions. Lying flat on his back due to back pain. HEENT: His mucous membranes are dry with caked blood. Normocephalic, atraumatic. Sclerae are free of jaundice. CARDIOVASCULAR: JVP is less than 10. Regular rate and rhythm with soft systolic murmur at left lower sternal border. LUNGS: Clear anteriorly and laterally. ABDOMEN: Distended and diffusely minimally tender. EXTREMITIES: Warm and well perfused without cyanosis, clubbing, or edema. Intact distal pulses. NEURO: Mostly alert. He is oriented. No gross focal neurologic deficits. LABORATORY/IMAGING: White count is 12, down from 16 on admission, hematocrit 40 , platelets 212, left shift noted. INR 1.34. Comprehensive metabolic panel is normal. Calcium 7.3. Troponin peak thus far 0.229 with an additional value pending. BNP 257. Ethyl alcohol level is less than 10. EKG reviewed by me shows sinus rhythm with RSR prime in V1 and V2. Normal QT interval. No evidence of pre-excitation. No ischemic changes. Echocardiogram reviewed by me: Normal biventricular size and systolic function. No regional wall motion abnormality. Trivial to mild mitral regurgitation and mild tricuspid regurgitation. RV systolic pressure is 42 mmHg. Overall similar findings compared with 2012. I have personally reviewed those studies. Chest x-ray reviewed by me: Possible mild pulmonary vascular congestion. L-spine x-ray: Acute compression fracture of L1. Head CT: No acute intracranial abnormality. ASSESSMENT/PLAN: A 57-year-old male with a long history of exertional presyncope, now is admitted with syncope and injury (L1 compression fracture). Differential diagnosis, includes tachy or bradyarrhythmia, profound vasodilation , less likely acute coronary syndrome or pulmonary embolism. Seizure is also on the differential and he has been seen by Neurology. 1. Syncope: He was quite hypotensive upon EMS arrival. He had been dehydrated and working in the yard. He has a long history of exertional presyncope. He also describes intermittent urticaria with exercise. I wonder if he has some sort of exertional urticaria causing profound vasodilation contributing to his clinical picture. Would monitor on telemetry. Repeat troponin. Start aspirin. Further risk stratification with Lexiscan nuclear stress test in the morning. Echocardiogram is reassuring. May require outpatient allergy evaluation. Could consider 30 day event recorder in the outpatient setting as well. 2. L1 compression fracture: Per Neurosurgery. Thank you for allowing us to participate in the patient's care. We will follow with him. /[id number]/MODL MTDD
--- NOTE | 2018-01-04 13:48 | ASMTCMCOM ---
CM Note CM Note Notes: 57yr old male found down at home by his : syncope vs sz also complaints of back pain-L1 compression fx. He has a Hx of RAD, OP, Asthma, OP. Cardiology and Neuro surg consults. CM to follow. Date Signed: 01/04/2018 01:47 PM Electronically Signed By:Patricia Lui LCSW
--- NOTE | 2018-01-04 14:51 | GCON ---
[f rep st] CONSULTATION PULMONARY CRITICAL CARE CONSULTATION DATE OF CONSULTATION: 01/04/2018 REASON FOR CONSULTATION: Syncope, L1 compression fracture with back pain in the setting of exercise induced anaphylaxis and hypotension. HISTORY OF PRESENT ILLNESS: The patient is a pleasant 57-year-old gentleman. He does have a history of exercise induced urticaria/anaphylaxis with associated syncope/presyncope at times. Generally, h is urticaria and symptoms occur only if he exercises relatively hard and for over 45 minutes. He has not been exercising much recently. These episodes are not associated with any specific foods that iram e is aware of or the timing of meals. There are also not associated with medication ingestion, such as nonsteroidal anti-inflammatories. Over the last several days, he has felt poorly, like he had a viral syndrome with myalgias and muscle heaviness. He was working in his yard in the heat. He felt he may have been somewhat dehydrated. He felt lightheaded and went inside and laid on the couch. He does not recall having any hives. He did feel lightheaded. He apparently fell either off the couch or was standing and then fell. This w as unwitnessed. His heard him fall. No seizure activity was noted; however, he did bite his to ngue. The paramedics were called. He was given intravenous fluids and transferred to the emergency department. He was tachycardic and hypotensive at 80/40 initially in the emergency department. White blood cell count was elevated at 16,000. Lumbar spine x-ray showed a compression fracture at L1. A CT scan of the head was negative. He was admitted to the intensive care unit for further evaluation. He has be en stable since, with normal vital signs. He complains of back pain. He is getting intermittent Dil audid. He is on Keppra for possible seizure, p.r.n. benzodiazepines are being given as well. He is on Zyrtec. He was seen by Cardiology. Cardiac echo was obtained. Right and left ventricular function appear no rmal. Right ventricular systolic pressure is mildly elevated at 42 mmHg. This apparently is stable from a previous echo in 2011. Troponin was mildly elevated at 0.23. This is felt to be nonspecific, possibly secondary to hypotension. He has been seen by Neurosurgery as well. A [place] brace has been recommended and the order placed. PAST MEDICAL HISTORY: Remarkable for mild asthma/reactive airway disease, allergies, and chronic mil d low back pain. HOME MEDICATIONS: Included Zyrtec, which he takes daily and a variety of p.r.n. medications, includi ng Afrin, Sudafed, acetaminophen, Benadryl, and Advair. He has not recently been requiring the latte r. He is on Ambien 10 mg at night. SOCIAL HISTORY: The patient is , with a supportive . He is a never smoker. Significant alcohol is negative. He works with computers/IT. FAMILY HISTORY: Negative/noncontributory. REVIEW OF SYSTEMS: Negative, except as outlined above. There is no history of coronary artery disea se, palpitations, arrhythmias, thromboembolic disease, recent problems with his asthma, etc. PHYSICAL EXAMINATION: GENERAL: Reveals a pleasant gentleman who is somewhat sedated, but easily trip usable and responsive. He answers questions appropriately. VITAL SIGNS: Blood pressure is 120/70, heart rate 85 with sinus rhythm on the monitor. On 1-2 L saturations are in the 90s. Respiratory ra te is 16. He is afebrile. NECK: Unremarkable for lymphadenopathy or thyromegaly. There is no jugu lar venous distention. CHEST: Clear bilaterally. There are no wheezes. HEART: Regular in rate an d rhythm without significant murmur or gallop. ABDOMEN: Soft and nontender. Bowel sounds are prese nt, but diminished. The back was not examined or palpated. : There is no Fine catheter is in pl heriberto. EXTREMITIES: There are no edema, cords, or tenderness. NEUROLOGIC: Examination is within nor mal limits. He has no sensory deficits related to the lower extremities and appears to move the feet and the legs appropriately, somewhat limited by pain. LABORATORY/IMAGING: Radiologic studies are as outlined above. White blood cell count is 12,000, hematocrit 13.6. Platelets are normal. PT 16.8 with PTT of 36 on admission. Metabolic panels have been within normal limits. BNP is negative. Albumin 2.1. The lat est troponin is coming down at 0.11. Chest x-ray on admission appeared normal. ASSESSMENT: 1. Syncopal episode. This is associated with a L1 compression fracture. The exact mechanism of inj ury is unknown as his fall was not witnessed. Likely he was upright at the time as opposed to having rolled off the couch. A seizure cannot be excluded as he did bite his tongue; however, he has no hi story of previous seizure disorder and CT scan of the head is negative. He has not been feeling well recently over the last several days. His syncope may have been related to a component of volume dep letion from poor oral intake and from heat and working outside. 2. History of exercise induced urticaria and lightheadedness/presyncope. This has been a problem fo r many years and is generally associated with more prolonged exercise for 45 minutes or so. Urticari a is associated with this. His urticarial lesions are relatively large. His episodes have not been associated with food or oral intake as far as he can determine. Apparently, they were medicated some what with the use of H1 blockers. He does take Zyrtec frequently. Benadryl apparently is helpful in medicating episodes as well. Goods or medications like nonsteroidals do not appear to be related to these episodes. His episode yesterday was associated with exertion and working outside in his yard, but not the type of exercise that generally precipitates his urticaria and lightheadedness. Urticar ia was not associated yesterday. 3. Mildly elevated troponin. Nonspecific, possibly related to low blood pressure. Cardiology has s een the patient and will follow. A stress test is being considered. 4. History of asthma/reactive airway disease. This is been stable and he has not recently had any p roblems with asthma. He has not been requiring any inhaled therapies. 5. L1 compression fracture. A [place] brace has been ordered. PLAN/RECOMMENDATIONS: Patient will be kept in the intensive care unit. Vital signs will be monitore d. Current medications will be continued, including Zyrtec. Intravenous fluids have been given. Ke ppra will be continued. Neurology consultation will be obtained. He will be kept at bedrest for now . Once his brace arrives, he will be able to get up out of bed. Further plans and recommendations will be made based on his progress over the next 12-24 hours. /[id number]/MODL
[2018-01-04] MEDS ORDERED: CLOBETASOL 0.05% 25 ML TOPICAL SOLUTION TP PRN (15:00)
[2018-01-04] MEDS: ASPIRIN 81 MG CHEWABLE TAB PO SCH (15:20)
[2018-01-04] MEDS ORDERED: GADOBUTROL 10 ML VIAL IVP ONE (16:04)
[2018-01-04] MEDS: TAMSULOSIN HCL 0.4 MG CAP PO SCH (17:37)
[2018-01-04] MEDS ORDERED: LIDOCAINE 2% JELLY 20 ML (UROJECT) ONE ×2 (18:22→20:06)
[2018-01-04] MEDS: DIAZEPAM 2 MG TAB PO PRN ×2 (18:57→23:42)
--- NOTE | 2018-01-04 22:28 | PDCONSULT ---
Cylinder Machine Operator Pulp Drier Note: RFC: difficult aguiar Requested by: Genevieve Jean MD HPI 57M w L1 fx yesterday and urinary retention. Nursing attempted aguiar placement but aguiar became "stuck" but no return of urine. Nursing tried to deflate balloon, but could not remove aguiar. Urology consulted. Patient denies any prior pelvic surgeries or injuries, no hx pelvic radiation, no prostate surgeries. ROS 10pt ROS performed, as stated in HPI, otherwise neg PMH/PSH/FH/SH reviewed PE: Gen NAD A*O, but appears uncomfortable CV regular Lungs normal effort Abd palpable bladder - I had nursing cut the balloon port on my arrival to this consult and the aguiar just fell out. Using sterile technique, I gently attempted to pass a 18F coude, then 12 F aguiar, then attempted to pass a glidewire into bladder, but none of these would pass. I then proceed to performe cystoscopy, noted posterior bulbar urethral false passage, but able to navigate into bladder, advance wire through scope. Scope removed leaving wire in place and 16F anvik tip aguiar placed easily over wire with return of clear yellow urine. Patient tolerated procedure well. Stat lock paced. A/P Traumatic aguiar catheter resulting in bulbar urethra false passage. Placement of difficult aguiar catheter with cystoscopy and a wire. Aguiar needs to remain in place for 7 days to allow false passage to heal. He can follow up w me as outpatient for further evaluation of urinary retention. Tayler Issa MD Urology [facility]
[2018-01-05] MEDS ORDERED: DIAZEPAM 5 MG TAB PO ONE (00:15)
[2018-01-05] MEDS: SIMETHICONE 80 MG TAB CHEW PO PRN ×2 (00:16→05:58)
[2018-01-05] MEDS: HYDROmorphone HCL/NS 0.5 MG/ML SYR IVP PRN ×5 (00:29→17:46)
[2018-01-05] MEDS: NS 1,000 ML IV SCH ×2 (01:12→10:25)
[2018-01-05] MEDS: CYCLOBENZAPRINE 10 MG TAB PO PRN ×3 (03:34→21:40)
[2018-01-05] MEDS: oxyCODONE IR 5 MG TAB PO PRN ×3 (03:34→16:39)
[2018-01-05] MEDS: OXYMETAZOLINE 30 ML NASAL SPRAY EACHNARE PRN ×2 (03:49→22:03)
--- NOTE | 2018-01-05 07:18 | NEUSURGPN ---
Assessment/Plan: Assessment: 57 yr old M s/p fall with L1 compression fracture, neuro intact Plan: -Patient fitted with Nesha brace, to be worn when out of bed. Not tolerating brace but will try again today. Will discuss with Dr Betancourt if candidate for Kyphoplasty -Standing x-rays in brace pending -PT/OT -Patient discussed with Dr Betancourt Please call neurosurgery with any questions/concerns Subjective: Back pain, complaining of abdominal distention Objective: AxO x3 5/5 BUE, BLE Sensation intact to light touch BLE Lower netbackup engineer to palpation Neuro Check Frequency: per routine Urinary Catheter in Place: No Catheter Insertion Date: 01/04/18 - Physician Discussed Patient with : [facility] Physical Exam - Vitals, I&O, Labs I and O 01/04/18 01/05/18 01/06/18 05:59 05:59 05:59 Intake Total 1877 5000 Output Total 2200 Balance 1877 2800 Weight 91.8 kg Intake: Oral (ml) 900 2350 IV Infused (ml) 977 2650 Ns 1,000 ml @ 125 mls/hr 977 2600 IV CONT TOM Rx#: [id number] levETIRAcetam 750 mg In 50 Ns (Syringe) 50 ml @ 200 mls/hr IV BID TOM Rx#: [id number] Output: Urine (ml) 2200 Catheter 2200 Other: Intake Quantity Yes Sufficient Number of Voids Urinal 0 Bladder Scan Volume (ml) Urinal 550 Vital Signs Temp Pulse Resp BP Pulse Ox 36.7 C 81 24 H 120/79 94 01/05/18 03:39 01/05/18 03:39 01/05/18 03:39 01/05/18 03:39 01/05/18 03:40 Laboratory Results 01/04/18 11:50 01/04/18 11:50 ICD10 Worksheet Patient Problems: Problems Problem Status Onset Altered mental status Acute Compression fracture of L1 lumbar vertebra Acute Osteoporosis Acute Seizure Acute
[2018-01-05] MEDS: LORazepam 2 MG/ML INJ IVP PRN ×2 (08:34→17:03)
--- NOTE | 2018-01-05 08:49 | SOAPPROG ---
SOAP Progress Note Assessment/Plan: Assessment: 57-year-old male with a benign cardiovascular risk factor profile who at his baseline is very active and typically asymptomatic. He has a fairly lengthy history of exertional lightheadedness sometimes associated with hives/ urticaria. He is admitted now after he experienced an episode of syncope associated with documented hypotension. Since arrival his workup has included an ECG, echocardiogram and labs. These have been reassuring. He did have a slight troponin elevation. At the present time, the etiology for his syncope most likely represents a hemodynamic event. There is no indication at this point for primary arrhythmia. He may have some for of an abnormal histamine release contributing to his symptoms. Apparently, he was scheduled for stress test today however is experiencing tremendous back pain related to his compression fracture. Plan: 1. At the present time I think we can forego stress testing given his back pain. 2. We will plan to continue telemetry monitoring. 3. Prior to discharge we may consider implantation of a monitor. 4. I think he would benefit from an outpatient referral to an lamp stack developer. 5. I will defer to Neurosurgery regarding care of his lumbar spine compression fracture. 6. We will follow along. 01/05/18 08:49 Subjective: The patient was seen and examined. His chart was reviewed. He was admitted after he experienced a syncopal event. He has suffered a lumbar spine compression fracture and is currently in a great deal of pain. Apparently on arrival he was significantly hypotensive after working in the [employer]. He has a fairly lengthy history of exertional episodes of near-syncope and lightheadedness. On occasions these episodes have been associated with urticaria. Since arrival here he has been hemodynamically stable and in sinus rhythm. His echocardiogram was reassuring in the fact that it was nearly normal with the exception of grade 1 diastolic dysfunction. He did have a very slight troponin elevation in setting of significant hypotension. Today states he is not experiencing any significant cardiac symptoms. His only complaint is that of his back pain. There is currently a stress test planned for today. Objective: Vital Signs Temp Pulse Resp BP Pulse Ox 36.7 C 81 24 H 120/79 94 01/05/18 03:39 01/05/18 03:39 01/05/18 03:39 01/05/18 03:39 01/05/18 03:40 Laboratory Results 01/04/18 11:50 01/04/18 11:50 01/04/18 01/05/18 01/06/18 05:59 05:59 05:59 Intake Total 1877 5000 Output Total 2200 Balance 1877 2800 PT 16.8 SEC (12.0-15.0) H 01/03/18 20:45 INR 1.34 (0.83-1.16) H 01/03/18 20:45 Physical Exam - Physical Exam General Appearance: WD/WN Respiratory: lungs clear (Anterior exam), No respiratory distress, No accessory muscle use Cardiac/Chest: regular rate, rhythm, No edema, No gallop, No JVD Peripheral Pulses: 2+: carotid (R), carotid (L) Abdomen: non-tender, soft Male Genitalia: deferred Rectal: deferred Neuro/Psych: alert, oriented x 3 ICD10 Worksheet Patient Problems: Problems Problem Status Onset Altered mental status Acute Compression fracture of L1 lumbar vertebra Acute Osteoporosis Acute Seizure Acute
--- NOTE | 2018-01-05 09:19 | PDINTPN ---
Owner Operator Progress Note Assessment/Plan: Assessment/plan: * Syncope-unclear etiology. Possible volume depletion * L1 compression fracture-Nesha brace has been ordered -neurosurgery following * Pain-periods of severe pain when awake. Currently resting comfortably. -will follow for now. Will hold escalating pain meds for now * Hypotension * Exercise-induced urticaria * History of asthma/reactive airways disease * VT prophylaxis * Stress ulcer prophylaxis * Nutrition-none Subjective: Currently resting comfortably. Pain when awake. Objective: Vital Signs Temp Pulse Resp BP Pulse Ox 36.7 C 81 24 H 120/79 94 01/05/18 03:39 01/05/18 03:39 01/05/18 03:39 01/05/18 03:39 01/05/18 03:40 Laboratory Results 01/04/18 11:50 01/04/18 11:50 01/04/18 01/05/18 01/06/18 05:59 05:59 05:59 Intake Total 1877 5000 Output Total 2200 Balance 1877 2800 PT 16.8 SEC (12.0-15.0) H 01/03/18 20:45 INR 1.34 (0.83-1.16) H 01/03/18 20:45 - Time Spent With Patient Time Spent With Patient: 25 min of time spent with patient, over 1/2 involved with coordination of care or counseling Physical Exam - Physical Exam General Appearance: alert, moderate distress EENT: PERRL/EOMI, normal ENT inspection Neck: non-tender, full range of motion, supple, normal inspection Respiratory: chest non-tender, lungs clear, normal breath sounds Cardiac/Chest: normal peripheral pulses, regular rate, rhythm Peripheral Pulses: 2+: carotid (R), carotid (L), femoral (R), femoral (L), dorsalis-pedis (R), dorsalis-pedis (L) Abdomen: normal bowel sounds, non-tender, soft Male Genitalia: deferred Rectal: deferred Skin: normal color, warm/dry Extremities: normal range of motion, non-tender, normal inspection, normal capillary refill Neuro/Psych: alert ICD10 Worksheet Patient Problems: Problems Problem Status Onset Altered mental status Acute Compression fracture of L1 lumbar vertebra Acute Osteoporosis Acute Seizure Acute
[2018-01-05] MEDS: TAMSULOSIN HCL 0.4 MG CAP PO SCH (10:21)
[2018-01-05] MEDS: ASPIRIN 81 MG CHEWABLE TAB PO SCH (10:21)
--- NOTE | 2018-01-05 10:54 | HOSPPROG ---
Hospitalist Progress Note Assessment/Plan: 57-year-old with a history of reactive airways disease and seasonal allergies is admitted with a syncope. This was unwitnessed, he did injure himself and that he sustained a L1 compression fracture and had some lacerations in his mouth. He is doing well today. There was some confusion post syncope is unclear if this was related to a postictal event or possibly he had significantly low blood pressure when the EMT arrived. # syncope: Difficult to determine if related to low BP, seizure, etc. Patient with essentially normal echocardiogram except for mild pulmonary hypertension and elevated troponins. He was mildly symptomatic prior to the event with some lightheadedness, no palpitations or chest pain. * ECHo shows no obvious cause for syncope * lexiscan prior to dc to rule out ischemia, given positive trops. * appreciate Neuro, unremarkable MRI, may need EEG * continue telemetry monitoring. # Exertional lightheadedness at baseline of unclear etiology. # Hypotension, unclear etiology, BP stable today. # reactive airways disease, patient lungs clear at this time will follow symptoms # L1 compression fracture, appreciate neurosurgery evaluation will assess pain level today and decide if needs further imaging. * Pt did not tolerate Jewitt brace, ? Kyphoplasty. # mild pulmonary hypertension noted on echo with a RVSP of 42. Positive family history of pulmonary hypertension. Will have him follow up with pulmonology as outpatient. Subjective: Complaining of sever back pain to RN, however sleeping when I saw him. Objective: Vital Signs Temp Pulse Resp BP Pulse Ox 36.7 C 87 16 147/85 H 95 01/05/18 03:39 01/05/18 08:00 01/05/18 08:00 01/05/18 08:00 01/05/18 08:00 Laboratory Results 01/04/18 11:50 01/04/18 11:50 01/04/18 01/05/18 01/06/18 05:59 05:59 05:59 Intake Total 1877 5000 Output Total 2200 Balance 1877 2800 PT 16.8 SEC (12.0-15.0) H 01/03/18 20:45 INR 1.34 (0.83-1.16) H 01/03/18 20:45 - Physical Exam Constitutional: no apparent distress Eyes: anicteric sclera Ears, Nose, Mouth, Throat: moist mucous membranes Cardiovascular: regular rate and rhythym Respiratory: no respiratory distress Gastrointestinal: normoactive bowel sounds Genitourinary: no bladder fullness, aguiar in urethra Skin: warm Musculoskeletal: full muscle strength Neurologic: AAOx3 Psychiatric: interacting appropriately, anxious ICD10 Worksheet Patient Problems: Problems Problem Status Onset Seizure Acute Altered mental status Acute Compression fracture of L1 lumbar vertebra Acute Osteoporosis Acute
[2018-01-05] MEDS ORDERED: MAGNESIUM HYDROXIDE 30 ML UDCUP PO PRN (10:56)
[2018-01-05] MEDS: levETIRAcetam 750 MG in NS (SYRINGE) 50 ML IV SCH ×2 (10:59→21:40)
--- NOTE | 2018-01-05 11:33 | PDCONSULT ---
Budget Report Clerk Note: PATIENT NOT SEEN. EHR and MRI BRAIN reviewed per Dr Brown's plan. MRI negative, with some movement artifact Overall, the clinical data suggest a primary syncopal/hypoperfusion event with possible secondary convulsion from hypoperfusion. He will continue his cardiac evaluation and neurosurgical treatment for lumbar spine injury. Recommendations: 1. 90 days of driving restrictions and seizure precautions 2. Continue Keppra 750 mg twice daily until neurology outpatient follow-up 3. Follow-up with Dr. Brown in 4-6 weeks to review interim history and consider whether an EEG needs to be done or not (depending on whether a clear cardiac cause was found or not). At that time, Dr. Brown can make recommendations regarding the Keppra management. No further recommendations now. We will continue to follow this patient as needed. Please do not hesitate to call for any questions or changes in neurologic status with this patient.
[2018-01-05] MEDS ORDERED: BUPIVACAINE 0.25% 30 ML SDV ONE (14:56)
[2018-01-05] MEDS ORDERED: EPINEPHrine 1 MG/ML INJ ONE (14:56)
[2018-01-05] MEDS ORDERED: BACITRACIN 50,000 UNITS/10 ML SYR IRR ONE (14:57)
[2018-01-05] MEDS ORDERED: fentaNYL 100 MCG/2 ML INJ IVP ONE (15:41)
[2018-01-05] MEDS ORDERED: fentaNYL 100 MCG/2 ML INJ ONE (15:42)
[2018-01-05] MEDS: LACTULOSE 20 GM/30 ML UDCUP PO PRN (16:54)
[2018-01-05] MEDS ORDERED: HYDROmorphONE/DILAUDID 4 MG TAB PO PRN (17:49)
[2018-01-05] MEDS ORDERED: METHOCARBAMOL 750 MG TAB ONE ×2 (17:51→17:56)
[2018-01-05] MEDS: DEXMEDETOMIDINE HCL 400 MCG in NS 100 ML IV SCH (18:10)
[2018-01-05] MEDS: METHOCARBAMOL 750 MG TAB PO PRN (18:30)
[2018-01-05] MEDS: SENNOSIDES/DOCUSATE SODIUM TAB PO SCH (21:40)
[2018-01-06] MEDS: DEXMEDETOMIDINE HCL 400 MCG in NS 100 ML IV SCH ×3 (00:37→13:04)
[2018-01-06] MEDS: NS 1,000 ML IV SCH ×2 (02:14→23:51)
--- NOTE | 2018-01-06 07:39 | CPEKG ---
Heart Rate: 92 RR Interval: 652 P-R Interval: 168 QRSD Interval: 110 QT Interval: 408 QTC Interval: 505 P [place]: 62 QRS [place]: 59 T Wave [place]: -53 EKG Severity - ABNORMAL ECG - EKG Impression: SINUS RHYTHM EKG Impression: PROBABLE LEFT ATRIAL ABNORMALITY EKG Impression: NONSPECIFIC INTRAVENTRICULAR CONDUCTION DELAY EKG Impression: BORDERLINE ST DEPRESSION, DIFFUSE LEADS Electronically Signed For: Fidelia Butterfield 06-Jan-2018 07:42:18
[2018-01-06] MEDS: levETIRAcetam 750 MG in NS (SYRINGE) 50 ML IV SCH ×2 (08:22→23:56)
--- NOTE | 2018-01-06 08:53 | SOAPPROG ---
SOAP Progress Note Assessment/Plan: Assessment/plan: * Syncope-unclear etiology. Possible volume depletion * L1 compression fracture-[place] brace has been ordered -neurosurgery following, surgery pending * Pain-periods of severe pain when awake. Currently resting comfortably. -will follow for now. Will hold escalating pain meds for now * Hypotension-resolved * Exercise-induced urticaria * History of asthma/reactive airways disease * VT prophylaxis * Stress ulcer prophylaxis * Nutrition-none Subjective: Resting comfortably. Pain reasonably well controlled. Objective: Vital Signs Temp Pulse Resp BP Pulse Ox 37.1 C 65 22 H 117/71 94 01/06/18 07:38 01/06/18 07:38 01/06/18 07:38 01/06/18 07:38 01/06/18 07:38 Laboratory Results 01/04/18 11:50 01/04/18 11:50 01/05/18 01/06/18 01/07/18 05:59 05:59 05:59 Intake Total 5000 2867 Output Total 2200 3045 Balance 2800 -178 PT 16.8 SEC (12.0-15.0) H 01/03/18 20:45 INR 1.34 (0.83-1.16) H 01/03/18 20:45 - Time Spent With Patient Time Spent With Patient: 25 min of time spent with patient, over 1/2 involved with coordination of care or counseling Physical Exam - Physical Exam General Appearance: alert, mild distress EENT: PERRL/EOMI Neck: non-tender, full range of motion, supple, normal inspection Respiratory: chest non-tender, lungs clear, normal breath sounds Cardiac/Chest: normal peripheral pulses, regular rate, rhythm Peripheral Pulses: 2+: carotid (R), carotid (L), femoral (R), femoral (L), dorsalis-pedis (R), dorsalis-pedis (L) Abdomen: normal bowel sounds, non-tender, soft Male Genitalia: deferred Rectal: deferred Skin: normal color, warm/dry Extremities: non-tender ICD10 Worksheet Patient Problems: Problems Problem Status Onset Altered mental status Acute Compression fracture of L1 lumbar vertebra Acute Osteoporosis Acute Seizure Acute
--- NOTE | 2018-01-06 09:31 | SOAPPROG ---
SOAP Progress Note Assessment/Plan: Assessment: 57-year-old male with a benign cardiovascular risk factor profile who at his baseline is very active and typically asymptomatic. He has a fairly lengthy history of exertional lightheadedness sometimes associated with hives/ urticaria. He is admitted now after he experienced an episode of syncope associated with documented hypotension. Since arrival his workup has included an ECG, echocardiogram and labs. These have been reassuring. He did have a slight troponin elevation. At the present time, the etiology for his syncope most likely represents a hemodynamic event. There is no indication at this point for primary arrhythmia. He may have some for of an abnormal histamine release contributing to his symptoms. Apparently, he was scheduled for stress test today however is experiencing tremendous back pain related to his compression fracture. Plan: 1. As an outpatient I would like him to have further testing to include a stress myocardial perfusion imaging study and a 1 month [employer] monitor. 2. I think he would benefit from an outpatient referral to see an bottom pounder cement shoes. 3. I do not think he requires any further inpatient cardiovascular treatments or testing. 4. We will sign off for now. Subjective: He has been hemodynamically stable overnight. There have been no arrhythmias. He continues to have significant back pain. Objective: Vital Signs Temp Pulse Resp BP Pulse Ox 37.1 C 65 22 H 117/71 94 01/06/18 07:38 01/06/18 07:38 01/06/18 07:38 01/06/18 07:38 01/06/18 07:38 Laboratory Results 01/04/18 11:50 01/04/18 11:50 01/05/18 01/06/18 01/07/18 05:59 05:59 05:59 Intake Total 5000 2867 Output Total 2200 3045 Balance 2800 -178 PT 16.8 SEC (12.0-15.0) H 01/03/18 20:45 INR 1.34 (0.83-1.16) H 01/03/18 20:45 Physical Exam - Physical Exam General Appearance: WD/WN, no apparent distress Respiratory: lungs clear Cardiac/Chest: regular rate, rhythm Peripheral Pulses: 2+: carotid (R), carotid (L) ICD10 Worksheet Patient Problems: Problems Problem Status Onset Altered mental status Acute Compression fracture of L1 lumbar vertebra Acute Osteoporosis Acute Seizure Acute
[2018-01-06 10:03] LABS: PLATELET COUNT 202 10^3/uL (150-400)
--- NOTE | 2018-01-06 10:06 | NEUSURGPN ---
Assessment/Plan: Assessment: 57 yr old M s/p fall with L1 burst fracture. Plan: -Patient not tolerating brace, in severe pain and on Precedex. -Patient post for surgery today at 5 pm. Risks, benefits and alternatives for a T11-L3 PSF with L1 laminectomy discussed. Patient's signed consents given current level of sedation with medications. Patient marked Discussed with Dr. Christianson who will also see the patient today Please call neurosurgery with any questions/concerns Subjective: back pain severe with movement. Denies any leg pain Objective: AxO x3 12/06 BUE, BLE Sensation intact to light touch BLE Lower hose tubing backer to palpation Catheter Insertion Date: 01/04/18 - Physician Patient Seen by : Meghan Neurosurgery Physical Exam - Vitals, I&O, Labs I and O 01/05/18 01/06/18 01/07/18 05:59 05:59 05:59 Intake Total 5000 2867 Output Total 2200 3045 Balance 2800 -178 Intake: Oral (ml) 2350 500 IV Intake (ml) 1225 IV Infused (ml) 2650 1142 Dexmedetomidine HCl 400 177 mcg In Ns 100 ml @ Titrate IV CONT TOM Rx#: [id number] Ns 1,000 ml @ 125 mls/hr 2600 915 IV CONT TOM Rx#: [id number] levETIRAcetam 750 mg In 50 50 Ns (Syringe) 50 ml @ 200 mls/hr IV BID TOM Rx#: [id number] Output: Urine (ml) 2200 3045 Catheter 2200 3045 Other: Bladder Scan Volume (ml) Urinal 550 Vital Signs Temp Pulse Resp BP Pulse Ox 37.1 C 65 22 H 117/71 94 01/06/18 07:38 01/06/18 07:38 01/06/18 07:38 01/06/18 07:38 01/06/18 07:38 Laboratory Results 01/06/18 09:35 ICD10 Worksheet Patient Problems: Problems Problem Status Onset Altered mental status Acute Compression fracture of L1 lumbar vertebra Acute Osteoporosis Acute Seizure Acute
[2018-01-06] MEDS ORDERED: ceFAZolin 2 GM/DEXTROSE 100 ML IV ONE (10:07)
[2018-01-06] MEDS: SENNOSIDES/DOCUSATE SODIUM TAB PO SCH ×2 (10:45→23:57)
[2018-01-06] MEDS: TAMSULOSIN HCL 0.4 MG CAP PO SCH (10:45)
[2018-01-06] MEDS: ASPIRIN 81 MG CHEWABLE TAB PO SCH (10:47)
--- NOTE | 2018-01-06 10:47 | HOSPPROG ---
Hospitalist Progress Note Assessment/Plan: 57-year-old with a history of reactive airways disease and seasonal allergies is admitted with a syncope. This was unwitnessed, he did injure himself and that he sustained a L1 compression fracture and had some lacerations in his mouth. He is doing well today. There was some confusion post syncope is unclear if this was related to a postictal event or possibly he had significantly low blood pressure when the EMT arrived. # syncope: Difficult to determine if related to low BP, seizure, etc. Patient with essentially normal echocardiogram except for mild pulmonary hypertension and elevated troponins. He was mildly symptomatic prior to the event with some lightheadedness, no palpitations or chest pain. * ECHo shows no obvious cause for syncope * Tele shows no arrythmia * schedule monitor at dc, contact the glaze wiper day of DC to set up * Outpatient stress test at [facility]. Increased trops likely from significant hypotension on admit. # Exertional lightheadedness at baseline of unclear etiology with history of hives. ? exertional uritcaria. * Will need outpatient follow up. * continue zyrtec and [id number] on DC # Urinary retention with traumatic aguiar resulting in bulbar urethra false passage. Placement of Aguiar via cysto 01/04, * Leave aguiar in 7 days to allow healing * Follow up with Dr. Sheppard as needed. # Hypotension, unclear etiology, BP stable today. # reactive airways disease, patient lungs clear at this time will follow symptoms # L1 burst fracture, NS to take to surgery later today. # mild pulmonary hypertension noted on echo with a RVSP of 42. Positive family history of pulmonary hypertension. Will have him follow up with pulmonology as outpatient. Subjective: pain better controlled with IV dilaudid and precedex drip Objective: Vital Signs Temp Pulse Resp BP Pulse Ox 37.1 C 65 22 H 117/71 94 01/06/18 07:38 01/06/18 07:38 01/06/18 07:38 01/06/18 07:38 01/06/18 07:38 Laboratory Results 01/06/18 09:35 01/06/18 09:35 01/05/18 01/06/18 01/07/18 05:59 05:59 05:59 Intake Total 5000 2867 Output Total 2200 3045 Balance 2800 -178 PT 16.8 SEC (12.0-15.0) H 01/03/18 20:45 INR 1.34 (0.83-1.16) H 01/03/18 20:45 - Physical Exam Constitutional: uncomfortable Eyes: PERRL Ears, Nose, Mouth, Throat: ears appear normal, dry mucous membranes Cardiovascular: regular rate and rhythym Respiratory: no respiratory distress, no rales or rhonchi, clear to auscultation Gastrointestinal: normoactive bowel sounds, soft, non-tender abdomen Genitourinary: no bladder fullness, aguiar in urethra Skin: warm Musculoskeletal: pain with ROM Neurologic: AAOx3 Psychiatric: interacting appropriately ICD10 Worksheet Patient Problems: Problems Problem Status Onset Seizure Acute Altered mental status Acute Compression fracture of L1 lumbar vertebra Acute Osteoporosis Acute
[2018-01-06] MEDS: HYDROmorphone HCL/NS 0.5 MG/ML SYR IVP PRN (13:01)
[2018-01-06] MEDS: OXYMETAZOLINE 30 ML NASAL SPRAY EACHNARE PRN (14:25)
[2018-01-06] MEDS: TRIAMCINOLONE 0.1% 15 GM CRTUBE TP SCH (16:18)
[2018-01-06] MEDS ORDERED: BUPIVACAINE 0.25% 30 ML SDV ONE ×2 (16:20→20:27)
[2018-01-06] MEDS ORDERED: THROMBIN (BOVINE) 5,000 UNIT VIAL TP ONE (16:20)
[2018-01-06] MEDS ORDERED: EPINEPHrine 1 MG/ML INJ ONE (16:21)
[2018-01-06] MEDS ORDERED: BACITRACIN 50,000 UNITS/10 ML SYR IRR ONE (16:21)
--- NOTE | 2018-01-06 17:48 | PDANEPAE ---
ANE History of Present Illness 57 year old with lumbar fx ANE Past Medical History - Pulmonary History Hx Oxygen in Use at Home: No Hx Sleep Apnea: No Sleep Apnea Screening Result - Last Documented: Negative - Endocrine History Hx Diabetes: No - Chronic Pain History Chronic Pain: No ANE Review of Systems Review of Systems: Pt on presedex ANE Patient History - Allergies Allergies/Adverse Reactions: No Known Allergies Allergy (Verified 06/26/17 13:49) - Home Medications Home Medications: Fluticasone/Salmeterol [Advair Hfa 115-21 Mcg Inhaler] 2 puffs IH BID PRN [Last Taken Unknown] Zolpidem Tartrate [Ambien] 10 mg PO HS 06/26/17 [Last Taken 01/02/18] Acetaminophen [Acetaminophen Extra Strength] 500 mg PO Q4H PRN 01/03/18 [Last Taken Unknown] Cetirizine [ZyrTEC 10 mg (*)] 10 mg PO DAILY PRN 01/03/18 [Last Taken Unknown] Oxymetazoline HCl [Afrin Nasal [place] (OTC)] 1 spray EACHNARE BID PRN 01/03/18 [ Last Taken Unknown] Phenylephrine HCl [Nasal Decongestant PE] 10 mg PO BID PRN 01/03/18 [Last Taken 01/03/18] Pseudoephedrine HCl [Sinus 12 Hour] 120 mg PO BID PRN 01/03/18 [Last Taken Unknown] diphenhydrAMINE [Benadryl 25 MG (*)] 25 mg PO Q6H PRN 01/03/18 [Last Taken Unknown] Clobetasol 0.05% [Temovate Topical Solution (RX)] 25 ml TP DAILY PRN 01/04/18 [ Last Taken Unknown] - NPO status NPO Since - Liquids (Date): 01/06/18 NPO Since - Liquids (Time): 00:01 NPO Since - Solids (Date): 01/06/18 NPO Since - Solids (Time): 00:01 - Anes Hx Anes Hx: no prior problems - Smoking Hx Smoking Status: Never smoked ANE Labs/Vital Signs - Labs Result Diagrams: 01/06/18 09:35 01/06/18 09:35 - Vital Signs Blood Pressure: 134/84 Heart Rate: 88 Respiratory Rate: 25 O2 Sat (%): 98 Height: 180.34 cm Weight: 91.8 kg ANE Physical Exam - Airway Neck exam: FROM - Pulmonary Pulmonary: no respiratory distress, clear to auscultation - Cardiovascular Cardiovascular: regular rate and rhythym - ASA Status ASA Status: III ANE Anesthesia Plan Anesthesia Plan: general endotracheal anesthesia
[2018-01-06] MEDS ORDERED: REMIFENTANIL HCL 1 MG VIAL ONE (17:57)
[2018-01-06] MEDS ORDERED: fentaNYL 250 MCG/5 ML INJ ONE (17:57)
[2018-01-06] MEDS ORDERED: CEFAZOLIN 2 GM/DEXTROSE/100 ML BAG IV ONE (17:57)
[2018-01-06] MEDS ORDERED: ROCURONIUM 50 MG/5 ML VIAL ONE (17:58)
[2018-01-06] MEDS ORDERED: KETAMINE 500 MG/10 ML VIAL ONE (17:58)
[2018-01-06] MEDS ORDERED: PROPOFOL/EMULSION 500 MG/50 ML BOTTLE IV ONE (17:58)
[2018-01-06] MEDS ORDERED: PROPOFOL 200 MG/20 ML VIAL ONE (17:58)
[2018-01-06] MEDS ORDERED: NALOXONE HCL 0.4 MG/ML INJ IVP PRN ×2 (20:22→22:05)
[2018-01-06] MEDS ORDERED: ONDANSETRON 4 MG/2 ML VIAL IV PRN (20:31)
--- NOTE | 2018-01-06 21:26 | POSTOPPROG ---
Post Op Note Date of Operation: 01/06/18 Surgeon: Thierno Christianson Basketball Coach: Nancy Carey PA-C Anesthesia: GET(General Endotracheal) Pre-op Diagnosis: L1 burst fracture Post-op Diagnosis: same Procedure: T12-L2 Posterior instrumented fusion, L1 laminectomy Inf/Abcess present in the surg proc area at time of surgery?: No Depth: Organ Space Complications: None identified Drains: Petar Gonzalez, Other (Epidural catheter pain placement) SOAP Progress Note Assessment/Plan: Assessment: Plan: 01/06/18 21:21 S: Patient in PACU. Waking up from surgery. In pain O: In pain, alert, VSS No droop CN II-XII grossly intact PERRL Small abrasions on eyelids bilaterally from tape MCCONNELL X 4 BLE 5/5 Incision c/d/i- dressed LINDA X 1- to full suction Epidural catheter for pain in place A: T12-L2 Posterior instrumented fusion, L1 laminectomy for L1 burst fracture P: -Admit back to SDU -Advance diet as tolerated -HOB may be as tolerated now -Activity as tolerated, up with assistance -Epidural pain catheter placed intraop- managed by anesthesia -LINDA X 1 -Postop x-rays in am -Out of bed with [place] brace -May have oral pain meds on top of epidural pain catheter, precedex prn Objective: Vital Signs Temp Pulse Resp BP Pulse Ox 37.3 C 88 25 H 134/84 H 98 01/06/18 16:03 01/06/18 17:48 01/06/18 17:48 01/06/18 17:48 01/06/18 17:48 Laboratory Results 01/06/18 09:35 01/06/18 09:35 01/05/18 01/06/18 01/07/18 05:59 05:59 05:59 Intake Total 5000 2867 1492 Output Total 2200 3045 2175 Balance 2800 -178 -683 PT 16.8 SEC (12.0-15.0) H 01/03/18 20:45 INR 1.34 (0.83-1.16) H 01/03/18 20:45
[2018-01-06] MEDS: HYDROmorph 10MCG/ML&BUP 0.1% in 100ML NS EP SCH (21:45)
[2018-01-06] MEDS ORDERED: PROMETHAZINE HCL 25 MG/ML INJ IVP PRN (22:05)
[2018-01-06] MEDS ORDERED: HYDROmorphONE/DILAUDID 2 MG/ML INJ IVP PRN (22:05)
[2018-01-06] MEDS ORDERED: fentaNYL 100 MCG/2 ML INJ IVP PRN (22:05)
[2018-01-06] MEDS ORDERED: ONDANSETRON 4 MG/2 ML VIAL IVP PRN (22:05)
--- NOTE | 2018-01-06 22:08 | POSTANESTH ---
Post Anesthetic Evaluation Cardiovascular Status: Normal, Stable Respiratory Status: Normal, Stable Level of Consciousness/Mental Status: Can Participate in Eval, Moderately Sleepy Pain Control: Adequate, Prn Tx Ordered Nausea/Vomiting Control: Adequate, Prn Tx Ordered Complications Possibly Related to Anesthesia: Other, See Comments Notes: Pt has abrasion over eye lids bilaterally. Caused by tape used to close eyes intraoperatively.
--- NOTE | 2018-01-06 22:51 | GOP ---
[f rep st] OPERATIVE REPORT DATE OF OPERATION: 01/06/2018 SURGEON: Thierno Christianson MD NEUROSURGEON: Thierno Christianson MD. GENERAL OFFICE ASSISTANT: Nancy Boateng PA-C. ANESTHESIA: General endotracheal. PREOPERATIVE DIAGNOSIS: L1 burst fracture. POSTOPERATIVE DIAGNOSIS: L1 burst fracture. PROCEDURE PERFORMED: 1. Open reduction and internal fixation of L1 burst fracture. 2. Placement of posterior spinal instrumentation at T12 and L2. 3. Posterolateral spinal fusion of T12 to L2. 4. Laminectomy of T12, L1 for decompression of the spinal canal. 5. Screw augmentation (vertebroplasty) unilaterally at T12 and bilaterally at L2 with methylmethacrylate cement. 6. [place] of local autograft. 7. Use of allograft bone morphogenetic protein and cancellous bone chips. 8. O-arm/Stealth stereotactic navigation for screw placement. 9. Intraoperative neurophysiologic monitoring, including somatosensory-evoked potentials, motor-evoked potentials, and electromyography. FINDINGS: Successful T12 to L2 instrumented fusion. SPECIMENS: None. ESTIMATED BLOOD LOSS: 150 cc. INDICATIONS: The patient is a 57-year-old male with osteoporosis who fell a few days ago with semi severe back pain. He initially was diagnosed with a compression fracture, but based on the plain films, he had an MRI scan last night and a CT today which revealed this to be a burst fracture with bilateral L1 pedicular involvement. The patient was not tolerating a brace at all and was having severe pain. Therefore, we discussed with the family the option of surgery. I did not think that kyphoplasty would be appropriate for this case. Therefore, we recommended T12 to L2 fusion with possible extension to T11 or L3 , depending on the bone quality. We ultimately elected to augment the screws and got good screw purchase. Patient did not have any neurologic deficits but did have severe back pain, and the MRI showed canal compromise. Therefore, we elected to proceed with a laminectomy as well. DESCRIPTION OF PROCEDURE: After informed consent was obtained from the patient , the patient was brought to the operating room and a formal time-out was performed, identifying the patient by name, medical record number, and date of . Preoperative antibiotics were given. The endotracheal tube was placed, and general endotracheal anesthesia was smoothly induced. Patient was then turned into the prone position on a Petar table, and all appropriate pressure points were padded and checked. Baseline motor-evoked potentials and somatosensory-evoked potentials were obtained. The lumbar region was then prepped and draped in normal sterile fashion. The O-arm was brought onto the field, and AP and lateral x-rays confirmed the level of the incision spanning the T12 to L2 pedicles. The incision was then made using a 10 blade, and the subcutaneous tissues were dissected using monopolar electrocautery. The fascia was opened in the midline, and the paraspinous muscles were taken down from the spinous process and lamina bilaterally at T12, L1, and L2. The facet joints were exposed but the facet capsules were not disturbed. At this point, the spinous process clamp was placed on the upper portion of the L2 spinous process , and the O-arm spin was obtained showing the relevant anatomy from T11 to L3. At this point, using stereotaxis, all the pedicle entry points were localized and the surface was decorticated, and using a 4.5 mm graduated tap, each pedicle was tapped and sounded to make sure that there was no breach. At this point, we placed cannulated Medtronic Solera screws at T12 and L2 using the stereotaxis. At T12, a 6.5 x 55 mm screw was placed on the left and a 6.5 x 50 mm screw was placed on the right. At L2, a 6.5 x 55 mm screw was placed bilaterally. All the screws were then stimulated, and all were stimulated above threshold of 20. At this point, a 2nd O-arm spin was obtained, confirming all the screws in excellent placement. The left-sided T12 screw was slightly close to the anterior cortex. Therefore, I elected not to augment that one. However, we did get good screw purchase into the pedicles on each side, but given his history of osteoporosis, we did decide to proceed with the augmentation. While the methylmethacrylate cement was being mixed, the high- speed drill was then used to drill laminectomies at T12 and L1, and [place] punches were used to finish the laminectomy, removing the yellow ligament and completely decompressing the dura. At this point, all the bleeding from that region was controlled using bipolar electrocautery and Gelfoam, and the dura was well decompressed. At this point, on the right side at T12 and bilaterally at L2, the towers were placed, and under direct fluoroscopic vision using the O arm, 1.5 cc of methylmethacrylate cement was placed through each of the 3 screws. There was no sign of breach of the cortex and good interdigitation of the cement into the vertebral bodies. At this point, again, the wound was copiously irrigated using bacitracin irrigation. The lamina and medial facet joints were then decorticated using the high-speed drill, and allograft BMP mixed with the locally harvested autograft from the spinous process and lamina and some allograft cancellous bone chips was then placed laterally for posterior lateral fusion from T12 to L2. A 5.5 x 70 mm cobalt chromium amy was then placed on the left, and a 5.5 x 60 mm amy was placed on the right. The locking caps were locked in place and tightened to their final torque. At this point, all hardware appeared to be in good position. Final AP and lateral x- rays confirmed good placement of the hardware. The wound was again copiously irrigated using bacitracin irrigation. An epidural catheter was threaded to the next level above the dura and tunneled out sterilely. The dura was then covered with Gelfoam. A 10-[place] LINDA drain was placed in the subfascial space, and the fascia was closed using interrupted 0 Vicryl sutures. The superficial fascia was closed using interrupted 0 Vicryl sutures. The deep dermis was closed using interrupted 2-0 Vicryl sutures, and the skin was closed using Dermabond. The patient was then awakened in the operating room and was extubated and transferred to the PACU in stable condition. There were no operative complications. All neurophysiologic monitoring was stable throughout the case without change. All sponge and needle counts were correct at the end of the case. FLUIDS AND URINE OUTPUT: Per the Anesthesia record. DRAINS: A subfascial LINDA and an epidural catheter for pain control. /[id number]/MODL MTDD
[2018-01-06] MEDS: DC NARCS MISC SCH (22:58)
[2018-01-06] MEDS: REGARDING ANTICOAG MISC SCH (22:58)
[2018-01-06] MEDS: METHOCARBAMOL 750 MG TAB PO PRN (23:21)
[2018-01-07] MEDS: TRIAMCINOLONE 0.1% 15 GM CRTUBE TP SCH ×4 (00:06→21:41)
[2018-01-07] MEDS: DEXMEDETOMIDINE HCL 400 MCG in NS 100 ML IV SCH ×2 (00:53→17:17)
[2018-01-07] MEDS: ceFAZolin 2 GM/DEXTROSE 100 ML IV SCH ×2 (02:48→09:40)
[2018-01-07] MEDS: ORAL BALANCE GEL TUBE PO PRN ×2 (02:49→05:51)
--- NOTE | 2018-01-07 08:16 | NEUSURGPN ---
Date of Surgery: 01/06/18 Post Op Day: 1 Assessment/Plan: Assessment: T12-L2 Posterior instrumented fusion, L1 laminectomy for L1 burst fracture POD#1 P: -Keep in SDU -Advance diet as tolerated -HOB may be as tolerated now -Activity as tolerated, up with assistance -Epidural pain catheter placed intraop- managed by anesthesia -LINDA X 1-will leave in today -Postop x-rays pending -No brace needed -May have oral pain meds on top of epidural pain catheter, precedex prn -Discussed patient with Dr Christianson Subjective: Resting comfortably in bed, denies any pain at this time Objective: CN II-XII grossly intact PERRL Resting in bed, awakens to voice Small abrasions on eyelids bilaterally from tape MCCONNELL X 4 BLE 5/5 Incision c/d/i- dressed LINDA X 1- to full suction Epidural catheter for pain in place Neuro Check Frequency: per routine Urinary Catheter in Place: Yes Urinary Catheter Indication: Other (Use Comment) (Epidural in place) Catheter Insertion Date: 01/04/18 - Physician Discussed Patient with : Meghan Neurosurgery Physical Exam - Vitals, I&O, Labs I and O 01/06/18 01/07/18 01/08/18 05:59 05:59 05:59 Intake Total 2867 5626 Output Total 3045 4245 Balance -178 1381 Weight 91.8 kg Intake: Oral (ml) 500 160 IV Intake (ml) 1225 2850 IV Infused (ml) 1142 2616 Dexmedetomidine HCl 400 177 348 mcg In Ns 100 ml @ Titrate IV CONT TOM Rx#: [id number] Ns 1,000 ml @ 125 mls/hr 915 2218 IV CONT TOM Rx#: [id number] levETIRAcetam 750 mg In 50 50 Ns (Syringe) 50 ml @ 200 mls/hr IV BID TOM Rx#: [id number] Output: Urine (ml) 3045 3950 Catheter 3045 3950 Estimated Blood Loss (ml) 150 Emesis (ml) 0 LINDA Drain Output (ml) 145 Left Back Petar Gonzalez 145 Vital Signs Temp Pulse Resp BP Pulse Ox 36.4 C 77 22 H 95/54 L 97 01/07/18 07:59 01/07/18 07:59 01/07/18 07:59 01/07/18 07:59 01/07/18 07:59 Laboratory Results 01/06/18 09:35 01/06/18 09:35 ICD10 Worksheet Patient Problems: Problems Problem Status Onset Altered mental status Acute Compression fracture of L1 lumbar vertebra Acute Osteoporosis Acute Seizure Acute
[2018-01-07] MEDS: SENNOSIDES/DOCUSATE SODIUM TAB PO SCH ×2 (08:50→21:07)
[2018-01-07] MEDS: TAMSULOSIN HCL 0.4 MG CAP PO SCH (08:50)
[2018-01-07] MEDS: METHOCARBAMOL 750 MG TAB PO PRN ×2 (08:50→21:10)
[2018-01-07] MEDS: levETIRAcetam 750 MG in NS (SYRINGE) 50 ML IV SCH (08:51)
[2018-01-07] MEDS: DC NARCS MISC SCH (09:00)
[2018-01-07] MEDS: REGARDING ANTICOAG MISC SCH (09:00)
--- NOTE | 2018-01-07 09:36 | PDINTPN ---
Super[employer] Progress Note Assessment/Plan: Assessment/plan: * Syncope-unclear etiology. Possible volume depletion * L1 compression fracture-status post T12 to L2 fusion, T1 lab he * Pain-markedly improved postoperatively * Hypotension-resolved * Exercise-induced urticaria * History of asthma/reactive airways disease * VT prophylaxis * Stress ulcer prophylaxis * Nutrition-none * Disposition-likely okay for transfer to floor 01/07/18 09:34 Subjective: Resting comfortably. Pain well controlled. Objective: Vital Signs Temp Pulse Resp BP Pulse Ox 36.4 C 77 22 H 95/54 L 97 01/07/18 07:59 01/07/18 07:59 01/07/18 07:59 01/07/18 07:59 01/07/18 07:59 Laboratory Results 01/06/18 09:35 01/06/18 09:35 01/06/18 01/07/18 01/08/18 05:59 05:59 05:59 Intake Total 2867 5626 Output Total 3045 4245 Balance -178 1381 PT 16.8 SEC (12.0-15.0) H 01/03/18 20:45 INR 1.34 (0.83-1.16) H 01/03/18 20:45 - Time Spent With Patient Time Spent With Patient: 25 min of time spent with patient, over 1/2 involved with coordination of care or counseling Physical Exam - Physical Exam General Appearance: alert, no apparent distress EENT: PERRL/EOMI Neck: non-tender, full range of motion Respiratory: chest non-tender, lungs clear, normal breath sounds Cardiac/Chest: normal peripheral pulses, regular rate, rhythm Peripheral Pulses: 2+: carotid (R), carotid (L), femoral (R), femoral (L), dorsalis-pedis (R), dorsalis-pedis (L) Abdomen: normal bowel sounds, non-tender, soft Male Genitalia: deferred Rectal: deferred Skin: normal color, warm/dry Extremities: non-tender Neuro/Psych: alert ICD10 Worksheet Patient Problems: Problems Problem Status Onset Altered mental status Acute Compression fracture of L1 lumbar vertebra Acute Osteoporosis Acute Seizure Acute
[2018-01-07] MEDS: OXYMETAZOLINE 30 ML NASAL SPRAY EACHNARE PRN (09:39)
--- NOTE | 2018-01-07 10:11 | HOSPPROG ---
Hospitalist Progress Note Assessment/Plan: DIAGNOSES: # SEIZURE AT HOME, FIRST EVER * On Keppra here, could change that to oral at this point * Sounds like current plans for outpatient EEG # L 1 BURST FX due to above * Status post ORIF with instrumentation and fusion T12-L2, screw augmentation * Pain is notably decreased with surgery so far # ABNORMAL EKG (ST depressions first ekg, resolved on 2nd) with Troponin elevations * unclear of trops due to injury (skeletol) or due to demand ischemia or a potential ACS # HYPOTENSION * Patient stating long history of hypotensive episodes after exercise also gets itching and hives, question if exertional urticaria versus other cause # OSTEOPOROSIS * Previously diagnosed with DEXA scan, is on vitamin-D and calcium supplements but no anti resorptive therapy # PULMONARY HTN * hx of RAD * ? if could have MADDY # ACUTE URETHRAL INJURY from the Fine catheter * Will need to keep Fine in at this time PLANS: * Routine postop care, physical occupational therapy, increase activity as able * Continue Keppra at least through outpatient neurology follow-up * Consider EEG and neurology follow-up * I will ask if the lab stable CPK testing from his earlier chemistries to try and clarify whether the troponins are cardiac or skeletal * Lexiscan stress before discharge * He should have outpatient assessment with pulmonology to consider possible sleep apnea testing with pulmonary hypertension * Keep Fine in for now, outpatient urology assessment * He should see a bone specialist to determine best anti resorptive therapy for him as he clearly now has symptomatic osteoporosis with fracture, continue calcium and vitamin-D supplements Patient seen by me today on hospitals rounds as well as multidisciplinary rounds I reviewed in detail with Dr. Valentin Lanier SUBJECTIVE: Notes that his back pain is less after surgery, a bit will to eat move a little bit better No other acute symptoms OBJECTIVE Vitals reviewed: Some mild tachypne at times otherwise stable vital signs sign Driller Hand, my review: Sinus Exam: alert oriented looks reasonably relaxed skin warm dry color ok resps not labored lungs clear BSs heart regular abd soft nondistended nontender, bowel sounds present limbs warm, no edema iv site ok I reviewed the tracings from his EKGs from the time of admission. The 1st EKG does show some ischemic appearing ST segment abnormalities which are resolved on the 2nd tracing Laboratory data: No tests done today, I reviewed the blood test results done throughout this hospital stay so far Studies done during this admission: CT scan of brain nothing acute but limited by motion artifact MRI of brain with and without contrast nothing acute and nothing to suggest a cause of seizure but limited by motion artifact MRI and CT scan of spine L1 burst fracture Echocardiogram good LV systolic and diastolic function, trivial valve abnormalities, pulmonary hypertension very mild at 42 Objective: Vital Signs Temp Pulse Resp BP Pulse Ox 36.4 C 77 22 H 95/54 L 97 01/07/18 07:59 01/07/18 07:59 01/07/18 07:59 01/07/18 07:59 01/07/18 07:59 Laboratory Results 01/06/18 09:35 01/06/18 09:35 01/06/18 01/07/18 01/08/18 06:59 06:59 06:59 Intake Total 2867 5626 Output Total 3045 4245 Balance -178 1381 PT 16.8 SEC (12.0-15.0) H 01/03/18 20:45 INR 1.34 (0.83-1.16) H 01/03/18 20:45 - Time Spent With Patient Time Spent with Patient: greater than 35 minutes Time Spent with Patient: Greater than 35 minutes spent on this patients care, greater than 50% of time spent counseling, educating, and coordinating care regarding the above mentioned plan. ICD10 Worksheet Patient Problems: Problems Problem Status Onset Altered mental status Acute Compression fracture of L1 lumbar vertebra Acute Osteoporosis Acute Seizure Acute
--- NOTE | 2018-01-07 12:19 | ASMTCMCOM ---
CM Note CM Note Notes: Patient is POD #1 T12-L2 posterior fusion and L1 lami. He being encouraged to get up with assistance and increase activity as tolerated. Initial PT eval today was limited by patient's pain and anxiety, but patient will likely be able to d/c home with and possible home PT. Case Management will follow. Date Signed: 01/07/2018 12:18 PM Electronically Signed By:Carey Caceres RN
[2018-01-07 12:27] LABS: CREATINE KINASE 182 IU/L (0-224)
[2018-01-07] MEDS: NS 1,000 ML IV SCH (17:17)
[2018-01-07] MEDS: HYDROmorph 10MCG/ML&BUP 0.1% in 100ML NS EP SCH (18:31)
[2018-01-07] MEDS: diphenhydrAMINE 25 MG CAP PO PRN (21:09)
[2018-01-07] MEDS: levETIRAcetam 500 MG TAB PO SCH (21:13)
[2018-01-07] MEDS: SIMETHICONE 80 MG TAB CHEW PO PRN (21:41)
[2018-01-08] MEDS: DEXMEDETOMIDINE HCL 400 MCG in NS 100 ML IV SCH ×2 (00:21→03:48)
[2018-01-08] MEDS: NS 1,000 ML IV SCH ×3 (00:21→17:31)
[2018-01-08] MEDS: HYDROmorph 10MCG/ML&BUP 0.1% in 100ML NS EP SCH ×3 (03:47→22:12)
--- NOTE | 2018-01-08 07:42 | NEUSURGPN ---
Assessment/Plan: Assessment: Plan: 01/06/18 21:21 Assessment: T12-L2 Posterior instrumented fusion, L1 laminectomy for L1 burst fracture POD#2 P: -Overall had a good night and doing well from a pain control standpoint, did require some precedex overnight to help hime sleep. -Optimize pain management- Goal to wean totally off precedex today, may take out epidural catheter today, will defer to anesthesia. Goal to transition to oral regimen over the next day or so -HOB may be as tolerated -Activity as tolerated, up with assistance -Epidural pain catheter placed intraop- managed by anesthesia -LINDA X 1-70 output, will pull today -Postop x-rays pending when able -No brace needed -May have oral pain meds on top of epidural pain catheter, -Discussed patient with Dr Christianson Subjective: Resting comfortably in bed, pain well managed at this time, slept well. Denies any pain, weakness, numbness in legs. Objective: CN II-XII grossly intact PERRL Resting in bed, awakens to voice MCCONNELL X 4 BLE 5/5 Incision c/d/i- dressed LINDA X 1- to full suction Epidural catheter for pain in place Catheter Insertion Date: 01/04/18 - Physician Discussed Patient with : Meghan Patient Seen by : Meghan Neurosurgery Physical Exam - Vitals, I&O, Labs I and O 01/07/18 01/08/18 01/09/18 05:59 05:59 05:59 Intake Total 5626 3936 Output Total 4245 2560 Balance 1381 1376 Weight 91.8 kg Intake: Oral (ml) 160 1050 IV Intake (ml) 2850 IV Infused (ml) 2616 2886 Dexmedetomidine HCl 400 348 334 mcg In Ns 100 ml @ Titrate IV CONT TOM Rx#: [id number] Ns 1,000 ml @ 125 mls/hr 2218 2452 IV CONT TOM Rx#: [id number] ceFAZolin 2 GM/DEXTROSE 100 100 ml @ 200 mls/hr IV Q8H TOM Rx#:[id number] levETIRAcetam 750 mg In 50 Ns (Syringe) 50 ml @ 200 mls/hr IV BID TOM Rx#: [id number] Output: Urine (ml) 3950 2350 Catheter 3950 2350 Estimated Blood Loss (ml) 150 Emesis (ml) 0 LINDA Drain Output (ml) 145 210 Left Back Petar Gonzalez 145 210 Other: Intake Quantity Yes Sufficient Vital Signs Temp Pulse Resp BP Pulse Ox 36.9 C 77 24 H 120/77 99 01/08/18 07:11 01/08/18 07:11 01/08/18 07:11 01/08/18 07:11 01/08/18 07:11 Laboratory Results 01/06/18 09:35 01/06/18 09:35 ICD10 Worksheet Patient Problems: Problems Problem Status Onset Altered mental status Acute Compression fracture of L1 lumbar vertebra Acute Osteoporosis Acute Seizure Acute
[2018-01-08] MEDS: oxyCODONE IR 5 MG TAB PO PRN ×4 (08:38→21:54)
[2018-01-08] MEDS: TAMSULOSIN HCL 0.4 MG CAP PO SCH (08:39)
[2018-01-08] MEDS: SENNOSIDES/DOCUSATE SODIUM TAB PO SCH ×2 (08:39→21:55)
[2018-01-08] MEDS: METHOCARBAMOL 750 MG TAB PO PRN ×2 (08:39→15:54)
[2018-01-08] MEDS: levETIRAcetam 500 MG TAB PO SCH ×2 (08:39→21:53)
[2018-01-08] MEDS: TRIAMCINOLONE 0.1% 15 GM CRTUBE TP SCH ×3 (08:42→23:21)
[2018-01-08] MEDS: OXYMETAZOLINE 30 ML NASAL SPRAY EACHNARE PRN ×2 (08:42→14:10)
[2018-01-08] MEDS: DC NARCS MISC SCH (08:43)
[2018-01-08] MEDS: REGARDING ANTICOAG MISC SCH (08:43)
[2018-01-08] MEDS ORDERED: DEXMEDETOMIDINE IN 0.9 % NACL 100 ML IV SCH (10:00)
--- NOTE | 2018-01-08 11:00 | HOSPPROG ---
Hospitalist Progress Note Assessment/Plan: DIAGNOSES: # SEIZURE AT HOME, FIRST EVER * On Keppra here, could change that to oral at this point * No recurrent seizures here in hospital so far * Sounds like current plans for outpatient EEG # L 1 BURST FX due to above * Status post ORIF with instrumentation and fusion T12-L2, screw augmentation * Pain is notably decreased with surgery so far, no signs of surgical complication # ABNORMAL EKG (ST depressions first ekg, resolved on 2nd) with Troponin elevations * Normal CPK rules out skeletal cause, so the troponins are cardiac in origin # POST EXERTIONAL HYPOTENSION * His hypotension here could potentially have been induced by seizure which I would consider physical exertion equivalent to his usual level of exercise * Patient stating long history of hypotensive episodes after exercise also gets itching and hives, question if exertional urticaria versus other cause * He does have a long history of hives and urticaria induced by other stimuli * So far cardiology evaluations have not shown a specific cause of his post exertion hypertension # OSTEOPOROSIS * Previously diagnosed with DEXA scan, is on vitamin-D and calcium supplements but no anti resorptive therapy * Will benefit from referral to a bone specialist in the outpatient setting to get on appropriate therapy and further assessment for cause of his osteoporosis # PULMONARY HTN * hx of RAD * ? if could have MADDY # ACUTE URETHRAL INJURY from the Fine catheter * Will need to keep Fine in at this time PLANS: * Routine postop care, physical occupational therapy, increase activity as able * Continue Keppra at least through outpatient neurology follow-up * Consider EEG and neurology follow-up * Lexiscan stress before discharge * Would consider referral to an cant hooker to look at his ongoing her to carry issues and see if there could possibly be any relationship to his post exertional hypotension * He should have outpatient assessment with pulmonology to consider possible sleep apnea testing with pulmonary hypertension * Keep Fine in for now, outpatient urology assessment * He should see a bone specialist to determine best anti resorptive therapy for him as he clearly now has symptomatic osteoporosis with fracture, continue calcium and vitamin-D supplements Patient seen by me today on hospitals rounds as well as multidisciplinary rounds I reviewed in detail with Dr. 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 The 1st EKG does show some ischemic appearing ST segment abnormalities which are resolved on the 2nd tracing Laboratory data: TSH free T3 free T4 PTH and CPK oral normal Studies done during this admission: CT scan of brain nothing acute but limited by motion artifact MRI of brain with and without contrast nothing acute and nothing to suggest a cause of seizure but limited by motion artifact MRI and CT scan of spine L1 burst fracture Echocardiogram good LV systolic and diastolic function, trivial valve abnormalities, pulmonary hypertension very mild at 42 Objective: Vital Signs Temp Pulse Resp BP Pulse Ox 36.9 C 84 21 H 120/77 96 01/08/18 07:11 01/08/18 09:39 01/08/18 09:39 01/08/18 07:11 01/08/18 09:39 Laboratory Results 01/06/18 09:35 01/06/18 09:35 01/07/18 01/08/18 01/09/18 06:59 06:59 06:59 Intake Total 5626 3936 924 Output Total 4245 2560 10 Balance 1381 1376 914 PT 16.8 SEC (12.0-15.0) H 01/03/18 20:45 INR 1.34 (0.83-1.16) H 01/03/18 20:45 ICD10 Worksheet Patient Problems: Problems Problem Status Onset Altered mental status Acute Compression fracture of L1 lumbar vertebra Acute Osteoporosis Acute Seizure Acute
--- NOTE | 2018-01-08 19:46 | POSTANESTH ---
Post Anesthetic Evaluation Cardiovascular Status: Normal, Stable Respiratory Status: Normal, Stable, Other, See Comment Level of Consciousness/Mental Status: Can Participate in Eval Pain Control: Adequate, Prn Tx Ordered Nausea/Vomiting Control: Adequate, Prn Tx Ordered (Pt is POD #2 for lumbar fusion. Epidural placed by Dr. Christianson intraop for post op pain management. PCEA running. Pt repports adequate pain control with suplimental narcotics. Unclear whether epidural is helping much. Pt encouraged to use demand button when experiencing pain. Will continue PCEA for now.)
[2018-01-08] MEDS: diphenhydrAMINE 25 MG CAP PO PRN (21:53)
[2018-01-08] MEDS: SIMETHICONE 80 MG TAB CHEW PO PRN (22:16)
[2018-01-08] MEDS: ACETAMINOPHEN 325 MG TAB PO PRN (22:26)
[2018-01-08] MEDS: POLYETHYLENE GLYCOL 3350 17 GM PKT PO PRN (23:39)
[2018-01-09] MEDS: DIAZEPAM 2 MG TAB PO PRN ×2 (01:36→23:41)
[2018-01-09] MEDS: ACETAMINOPHEN 325 MG TAB PO PRN (02:27)
[2018-01-09] MEDS: HYDROmorph 10MCG/ML&BUP 0.1% in 100ML NS EP SCH (05:29)
[2018-01-09] MEDS: NS 1,000 ML IV SCH ×2 (09:28→21:35)
[2018-01-09] MEDS: levETIRAcetam 500 MG TAB PO SCH ×2 (09:30→20:59)
[2018-01-09] MEDS: TAMSULOSIN HCL 0.4 MG CAP PO SCH (09:31)
[2018-01-09] MEDS: SENNOSIDES/DOCUSATE SODIUM TAB PO SCH ×2 (09:32→20:58)
--- NOTE | 2018-01-09 09:32 | NEUSURGPN ---
Date of Surgery: 01/06/18 Post Op Day: 3 Assessment/Plan: Assessment: T12-L2 Posterior instrumented fusion, L1 laminectomy for L1 burst fracture POD#3 Plan: -Advance diet as tolerated -HOB may be as tolerated now -Activity as tolerated, up with assistance. Encourage ambulation. -IS every hour when awake -Epidural pain catheter placed intraop- managed by anesthesia. Plan to wean and remove today -Postop x-rays show stable hardware placement -No brace needed -May have oral pain meds on top of epidural pain catheter while weaning epidural -Plan to remove aguiar after epidural dc'd -Discussed patient with Dr Christianson Subjective: Expected back discomfort, otherwise no complaints Objective: PERRL Resting in bed, awakens to voice MCCONNELL X 4 BLE 5/5 Incision c/d/i- dressed Epidural catheter for pain in place Neuro Check Frequency: per routine Urinary Catheter in Place: Yes Urinary Catheter Indication: Other (Use Comment) (epidural in place) Catheter Insertion Date: 01/04/18 - Physician Discussed Patient with : Meghan Neurosurgery Physical Exam - Vitals, I&O, Labs I and O 01/08/18 01/09/18 01/10/18 05:59 05:59 05:59 Intake Total 3936 3059 Output Total 2560 1910 Balance 1376 1149 Intake: Oral (ml) 1050 1000 IV Infused (ml) 2886 2059 Dexmedetomidine HCl 400 334 24 mcg In Ns 100 ml @ Titrate IV CONT TOM Rx#: [id number] Ns 1,000 ml @ 125 mls/hr 2452 2035 IV CONT TOM Rx#: [id number] ceFAZolin 2 GM/DEXTROSE 100 100 ml @ 200 mls/hr IV Q8H TOM Rx#:[id number] Output: Urine (ml) 2350 1900 Catheter 2350 1900 LINDA Drain Output (ml) 210 10 Left Back Petar Gonzalez 210 10 Other: Intake Quantity Yes Yes Sufficient Number of Voids Catheter 1 Vital Signs Temp Pulse Resp BP Pulse Ox 36.9 C 80 15 128/79 H 97 01/09/18 07:26 01/09/18 07:26 01/09/18 07:26 01/09/18 07:26 01/09/18 07:26 Laboratory Results 01/06/18 09:35 01/06/18 09:35 ICD10 Worksheet Patient Problems: Problems Problem Status Onset Altered mental status Acute Compression fracture of L1 lumbar vertebra Acute Osteoporosis Acute Seizure Acute
[2018-01-09] MEDS: REGARDING ANTICOAG MISC SCH (09:47)
[2018-01-09] MEDS: DC NARCS MISC SCH (09:47)
[2018-01-09] MEDS: TRIAMCINOLONE 0.1% 15 GM CRTUBE TP SCH ×3 (09:48→21:01)
[2018-01-09] MEDS: diphenhydrAMINE 25 MG CAP PO PRN (09:49)
[2018-01-09] MEDS: oxyCODONE IR 5 MG TAB PO PRN ×3 (11:12→20:58)
[2018-01-09] MEDS: BISACODYL 10 MG SUPP PR PRN (13:39)
[2018-01-09] MEDS: LACTULOSE 20 GM/30 ML UDCUP PO PRN (14:56)
--- NOTE | 2018-01-09 16:06 | HOSPPROG ---
Hospitalist Progress Note Assessment/Plan: DIAGNOSES: # SEIZURE AT HOME, FIRST EVER * On Keppra here, could change that to oral at this point * No recurrent seizures here in hospital so far * Sounds like current plans for outpatient EEG # L 1 BURST FX due to above * Status post ORIF with instrumentation and fusion T12-L2, screw augmentation * Still using some pain medicine for pain but had his epidural out today in no change so far * Has been up to walk in the hallway some today # ABNORMAL EKG (ST depressions first ekg, resolved on ) with Troponin elevations * Normal CPK rules out skeletal cause, so the troponins are cardiac in origin # CONSTIPATION POSTOPERATIVE * Pain medicines, Benadryl, and activity, pain all likely playing a role * Is getting some laxative and is starting to feel some activity, will follow closely, may need to use methyl naltrexone # POST EXERTIONAL HYPOTENSION * His hypotension seen upon presentation here could potentially have been induced by seizure which I would consider physical exertion equivalent to his usual level of exercise * Patient stating long history of hypotensive episodes after exercise also gets itching and hives, question if exertional urticaria versus other cause * He does have a long history of hives and urticaria induced by other stimuli * So far cardiology evaluations have not shown a specific cause of his post exertion hypertension # OSTEOPOROSIS * Previously diagnosed with DEXA scan, is on vitamin-D and calcium supplements but no anti resorptive therapy * Will benefit from referral to a bone specialist in the outpatient setting to get on appropriate therapy and further assessment for cause of his osteoporosis # PULMONARY HTN * hx of RAD * ? if could have MADDY # ACUTE URETHRAL INJURY from the Fine catheter * Per Dr. Umanzor's recommendations Fine should stay in through January 11 PLANS: * Routine postop care, physical occupational therapy, increase activity as able * Continue Keppra at least through outpatient neurology follow-up * Consider EEG and neurology follow-up * Lexiscan stress before discharge * Would consider referral to an manager chemistry to look at his ongoing her to carry issues and see if there could possibly be any relationship to his post exertional hypotension * He should have outpatient assessment with pulmonology to consider possible sleep apnea testing with pulmonary hypertension * Keep Fine in for now, outpatient urology assessment * He should see a bone specialist to determine best anti resorptive therapy for him as he clearly now has symptomatic osteoporosis with fracture, continue calcium and vitamin-D supplements Patient seen by me today on hospitals rounds as well as multidisciplinary rounds I reviewed in detail with Dr. 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 The 1st EKG does show some ischemic appearing ST segment abnormalities which are resolved on the 2nd tracing Laboratory data: TSH free T3 free T4 PTH and CPK oral normal Studies done during this admission: CT scan of brain nothing acute but limited by motion artifact MRI of brain with and without contrast nothing acute and nothing to suggest a cause of seizure but limited by motion artifact MRI and CT scan of spine L1 burst fracture Echocardiogram good LV systolic and diastolic function, trivial valve abnormalities, pulmonary hypertension very mild at 42 Objective: Vital Signs Temp Pulse Resp BP Pulse Ox 37.4 C 101 H 19 129/82 H 93 01/09/18 15:53 01/09/18 15:53 01/09/18 15:53 01/09/18 15:53 01/09/18 12:00 Laboratory Results 01/06/18 09:35 01/06/18 09:35 01/08/18 01/09/18 01/10/18 06:59 06:59 06:59 Intake Total 3936 3059 Output Total 2560 1910 Balance 1376 1149 PT 16.8 SEC (12.0-15.0) H 01/03/18 20:45 INR 1.34 (0.83-1.16) H 01/03/18 20:45 ICD10 Worksheet Patient Problems: Problems Problem Status Onset Altered mental status Acute Compression fracture of L1 lumbar vertebra Acute Osteoporosis Acute Seizure Acute
--- NOTE | 2018-01-09 16:52 | ASMTCMCOM ---
CM Note CM Note Notes: CM met w/ pt for dispo planning. Therapies are recommending HC. Pt does not have a preference on HC agencies as long as it is covered [facility]. Referrals sent to HC agencies. CM confirmed pts address and phone number. Pts PCP is Dr. Collins. CM to follow. Plan: HC; PT, OT Date Signed: 01/09/2018 04:51 PM Electronically Signed By:ELVA De Guzman
[2018-01-09] MEDS: SIMETHICONE 80 MG TAB CHEW PO PRN (21:02)
--- NOTE | 2018-01-09 22:36 | HOSPPROG ---
Hospitalist Progress Note Assessment/Plan: Called by RN for increased abd pain and fever. 57 y/o m with osteoporosis who underwent ORIF L1 burst fracture. Has not had BM for several days. Has aguiar in place. No cough,diarrhea, N/V. Passing gas earlier today Exam CV: RRR Lungs: CTA anteriorly GI: distended, soft, quiet BS. No peritoneal signs : aguiar in place, mild left suprapubic TTP #Abd pain: AXR shows ileus, reviewed with Radiologist. Cont bowel regimen #Fever: UA with suprapubic TTP, blood cultures Objective: Vital Signs Temp Pulse Resp BP Pulse Ox 38.6 C H 102 H 18 125/88 H 97 01/09/18 20:00 01/09/18 20:00 01/09/18 20:00 01/09/18 20:00 01/09/18 20:00 Laboratory Results 01/06/18 09:35 01/06/18 09:35 01/08/18 01/09/18 01/10/18 05:59 05:59 05:59 Intake Total 3936 3059 1950 Output Total 2560 1910 1350 Balance 1376 1149 600 PT 16.8 SEC (12.0-15.0) H 01/03/18 20:45 INR 1.34 (0.83-1.16) H 01/03/18 20:45 ICD10 Worksheet Patient Problems: Problems Problem Status Onset Seizure Acute Altered mental status Acute Compression fracture of L1 lumbar vertebra Acute Osteoporosis Acute
[2018-01-09] MEDS: METHOCARBAMOL 750 MG TAB PO PRN (23:40)
[2018-01-10] MEDS: OXYMETAZOLINE 30 ML NASAL SPRAY EACHNARE PRN (04:59)
[2018-01-10] MEDS ORDERED: IOPAMIDOL (ISOVUE-300) 100 ML BTL ONE (05:37)
[2018-01-10] MEDS: NS 1,000 ML IV SCH ×2 (05:41→22:28)
[2018-01-10] MEDS: oxyCODONE IR 5 MG TAB PO PRN ×5 (06:11→23:48)
--- NOTE | 2018-01-10 07:26 | SOAPPROG ---
SOAP Progress Note Assessment/Plan: Assessment: POD#4 s/p T12-L2 instrumented fusion for L1 burst fx Plan: -c/o abdominal pain overnight, hospitalist got CT abdomen which shows ileus -bowel management, consider switch to clears -post-op xrays show good alignment with intact hardware -continue pain control, although back pain tolerable now on current meds -PT/OT -likely needs rehab -will continue to follow for spinal issues 01/10/18 07:22 Subjective: c/o abdominal distension and pain this morning, back pain tolerable Objective: Vital Signs Temp Pulse Resp BP Pulse Ox 36.9 C 91 15 135/90 H 92 01/10/18 07:16 01/10/18 07:16 01/10/18 07:16 01/10/18 07:16 01/10/18 07:16 Laboratory Results 01/06/18 09:35 01/06/18 09:35 01/09/18 01/10/18 01/11/18 05:59 05:59 05:59 Intake Total 3059 1950 1371 Output Total 1910 2900 Balance 1149 -950 1371 PT 16.8 SEC (12.0-15.0) H 01/03/18 20:45 INR 1.34 (0.83-1.16) H 01/03/18 20:45 AAOx3, full strength and sensation, no drift, wound c/d/i abdomen distended but no peritoneal signs - Pending Discharge Pending Discharge Within 24 Hours: No ICD10 Worksheet Patient Problems: Problems Problem Status Onset Altered mental status Acute Compression fracture of L1 lumbar vertebra Acute Osteoporosis Acute Seizure Acute
[2018-01-10] MEDS ORDERED: IOPAMIDOL (ISOVUE 370) 100 ML BTL IV ONE (07:35)
[2018-01-10] MEDS ORDERED: METHYLNALTREXONE BROMIDE 12 MG/0.6 ML INJ SC ONE (08:32)
[2018-01-10] MEDS: BISACODYL 10 MG SUPP PR PRN (09:55)
[2018-01-10] MEDS: CYCLOBENZAPRINE 10 MG TAB PO PRN (09:57)
[2018-01-10] MEDS ORDERED: GLYCERIN ADULT 1 EACH SUPP PR ONE (11:43)
--- NOTE | 2018-01-10 11:54 | HOSPPROG ---
Hospitalist Progress Note Assessment/Plan: DIAGNOSES: # SEIZURE AT HOME, FIRST EVER * On Keppra here, could change that to oral at this point * No recurrent seizures here in hospital so far * Sounds like current plans for outpatient EEG # L 1 BURST FX due to above * Status post ORIF with instrumentation and fusion T12-L2, screw augmentation * Still using some pain medicine for pain but had his epidural out today in no change so far * Has been up to walk in the hallway some today # ABNORMAL EKG (ST depressions first ekg, resolved on ) with Troponin elevations * Normal CPK rules out skeletal cause, so the troponins are cardiac in origin # SEVERE CRAMPY LOWER ABDOMINAL PAIN new onset overnight January 09 * Suspect this is ileus caused by his surgery, pain medicines, Benadryl, etc; I was concerned about the distended urinary bladder despite Fine as seen on CT scan, however are subsequent bedside sono found only 12 mL of urine. The Fine does on examination appear to be draining the bladder well * Will need to try other measures to get bowels going; he is ambulating # FEVER NEW ONSET OVERNIGHT JANUARY 09 * I do not think this is related to his abdominal symptoms at this time but will need to watch closely that no process develops there * So far there has not been sign of wound infection but will need to watch that very closely * Blood cultures were obtained will follow those; so far nothing to suggest a respiratory infection in terms of symptoms are exam and the lower part of his lungs did not show pneumonia on CT today; the urine coming from his Fine is clear and I do not at this time suspected urinary infection # POST EXERTIONAL HYPOTENSION * His hypotension seen upon presentation here could potentially have been induced by seizure which I would consider physical exertion equivalent to his usual level of exercise * Patient stating long history of hypotensive episodes after exercise also gets itching and hives, question if exertional urticaria versus other cause * He does have a long history of hives and urticaria induced by other stimuli * So far cardiology evaluations have not shown a specific cause of his post exertion hypertension # OSTEOPOROSIS * Previously diagnosed with DEXA scan, is on vitamin-D and calcium supplements but no anti resorptive therapy * Will benefit from referral to a bone specialist in the outpatient setting to get on appropriate therapy and further assessment for cause of his osteoporosis # PULMONARY HTN * hx of RAD * ? if could have MADDY # ACUTE URETHRAL INJURY from the Fine catheter * Per Dr. Umanzor's recommendations Fine should stay in through January 11 PLANS: * Routine postop care, physical occupational therapy, increase activity as able * Follow-up temperatures and cultures closely, consider other evaluations for cause of fever as indicated clinically * Relative store was ordered for today and I will also order glycerin suppository and cast still enema; if necessary may try Gastrografin and; did not think he will tolerate oral laxatives at this time due to his ileus; encouraged continued ambulation by patient * Continue Keppra at least through outpatient neurology follow-up * Consider EEG and neurology follow-up * Lexiscan stress before discharge * Would consider referral to an scarf gluer to look at his ongoing her to carry issues and see if there could possibly be any relationship to his post exertional hypotension * He should have outpatient assessment with pulmonology to consider possible sleep apnea testing with pulmonary hypertension * Fine catheter could come out tomorrow per Dr. Umanzor's recommendations * He should see a bone specialist to determine best anti resorptive therapy for him as he clearly now has symptomatic osteoporosis with fracture, continue calcium and vitamin-D supplements SUBJECTIVE: Severe crampy lower abdominal pain overnight kept him awake all night and persists this morning though starting to ease perhaps slightly at this moment. Abdominal x-rays were done as well as CT scan. He is having so far only 1 very minimal bowel movement yesterday after laxatives and enemas. None since admission Back pain is minimal at this time per patient, no shortness of breath or chest discomfort OBJECTIVE Vitals reviewed: Did have a fever last night 38.5, temperature down at this time; blood pressure is better overall, still intermittently some low-grade tachycardia respirations good Deputy Court Clerk, my review: Sinus Exam: alert oriented looks more comfortable than what I heard about from earlier this morning and last night when he was reportedly pacing about in the room skin warm dry color ok resps not labored lungs clear BSs heart regular abd soft nondistended nontender, bowel sounds present limbs warm, no edema Fine catheter in place is draining clear yellow urine in good volumes, appears well secured iv site ok I reviewed his CT scan images from this morning of the abdomen. Of concern to me was that in addition to signs of ileus which was mentioned by the radiologist , there is a significantly distended bladder despite presence of the Fine catheter which appears to be in proper position on the scan. Additionally there are significant bilateral pleural effusions I had the nurses do a ultrasound bladder scan at the bedside and this showed only 12 mL of urine Laboratory data: A lactic acid was done last night and is in the normal range when he was having his fever Studies done during this admission: CT scan of brain nothing acute but limited by motion artifact MRI of brain with and without contrast nothing acute and nothing to suggest a cause of seizure but limited by motion artifact MRI and CT scan of spine L1 burst fracture Echocardiogram good LV systolic and diastolic function, trivial valve abnormalities, pulmonary hypertension very mild at 42 CT abdomen pelvis showing 1. Ileus 2. Distention of bladder despite Fine catheter in place 3. Bilateral pleural effusions Objective: Vital Signs Temp Pulse Resp BP Pulse Ox 37.1 C 77 16 142/78 H 90 L 01/10/18 11:39 01/10/18 11:39 01/10/18 11:39 01/10/18 11:39 01/10/18 11:39 Laboratory Results 01/06/18 09:35 01/06/18 09:35 01/09/18 01/10/18 01/11/18 06:59 06:59 06:59 Intake Total 3059 3321 Output Total 1910 2900 650 Balance 1149 421 -650 PT 16.8 SEC (12.0-15.0) H 01/03/18 20:45 INR 1.34 (0.83-1.16) H 01/03/18 20:45 ICD10 Worksheet Patient Problems: Problems Problem Status Onset Altered mental status Acute Compression fracture of L1 lumbar vertebra Acute Osteoporosis Acute Seizure Acute
[2018-01-10] MEDS: DC NARCS MISC SCH (12:30)
[2018-01-10] MEDS: REGARDING ANTICOAG MISC SCH (12:31)
[2018-01-10] MEDS: TRIAMCINOLONE 0.1% 15 GM CRTUBE TP SCH ×4 (12:31→22:27)
[2018-01-10] MEDS: SENNOSIDES/DOCUSATE SODIUM TAB PO SCH ×2 (14:30→21:35)
[2018-01-10] MEDS: levETIRAcetam 500 MG TAB PO SCH ×2 (15:18→21:35)
[2018-01-10] MEDS: TAMSULOSIN HCL 0.4 MG CAP PO SCH (15:18)
--- NOTE | 2018-01-10 15:57 | ASMTCMCOM ---
CM Note CM Note Notes: [facility] will get ins auth on Friday. [employer] unable to take until Friday. [employer] cannot take at all. CM to follow. Date Signed: 01/10/2018 03:56 PM Electronically Signed By:Savannah Peters LCSW
[2018-01-10] MEDS ORDERED: MAGNESIUM CITRATE 300 ML BOTTLE PO ONE (16:03)
[2018-01-10] MEDS: LACTULOSE 20 GM/30 ML UDCUP PO PRN (16:40)
[2018-01-10] MEDS: SIMETHICONE 80 MG TAB CHEW PO PRN (22:26)
[2018-01-11] MEDS: DIAZEPAM 2 MG TAB PO PRN (01:20)
[2018-01-11] MEDS: METHOCARBAMOL 750 MG TAB PO PRN (04:44)
[2018-01-11] MEDS: oxyCODONE IR 5 MG TAB PO PRN (04:44)
[2018-01-11] MEDS: SENNOSIDES/DOCUSATE SODIUM TAB PO SCH ×2 (08:57→21:38)
[2018-01-11] MEDS: levETIRAcetam 500 MG TAB PO SCH ×2 (08:58→21:23)
[2018-01-11] MEDS: TAMSULOSIN HCL 0.4 MG CAP PO SCH (08:59)
[2018-01-11] MEDS: DC NARCS MISC SCH (09:00)
[2018-01-11] MEDS: REGARDING ANTICOAG MISC SCH (09:01)
[2018-01-11] MEDS: TRIAMCINOLONE 0.1% 15 GM CRTUBE TP SCH ×3 (09:02→21:39)
[2018-01-11] MEDS ORDERED: FLUTICASONE/SALMETER 250/50MCG DISKUS IH PRN (09:30)
--- NOTE | 2018-01-11 09:58 | SOAPPROG ---
JUVENCIO Progress Note Assessment/Plan: Assessment: POD#5 s/p T12-L2 instrumented fusion for L1 burst fx, patient with extremely low pain tolerance Plan: -abdominal pain improved, no c/o low back pain below the surgery when he sits and walks, likely muscle spasm -ileus management, patient says he would like to eat today -post-op xrays show good alignment with intact hardware -continue pain control, will add two days of celebrex and see if this will be of better benefit -PT/OT -rehab planning -will continue to follow for spinal issues 01/11/18 09:55 Subjective: c/o some low back pain, below area of incision Objective: Vital Signs Temp Pulse Resp BP Pulse Ox 36.9 C 89 24 H 142/93 H 94 01/11/18 07:46 01/11/18 07:46 01/11/18 07:46 01/11/18 07:46 01/11/18 07:46 Laboratory Results 01/06/18 09:35 01/06/18 09:35 01/10/18 01/11/18 01/12/18 05:59 05:59 05:59 Intake Total 1950 2421 Output Total 2900 3100 575 Balance -950 -679 -575 PT 16.8 SEC (12.0-15.0) H 01/03/18 20:45 INR 1.34 (0.83-1.16) H 01/03/18 20:45 AAOx3, full strength and sensation, no drift, dressings c/d/i, much less abdominal distension today - Pending Discharge Pending Discharge Within 48 Hours: Yes Pending Discharge Date: 01/13/18 Pending Discharge Time: 11:00 ICD10 Worksheet Patient Problems: Problems Problem Status Onset Altered mental status Acute Compression fracture of L1 lumbar vertebra Acute Osteoporosis Acute Seizure Acute
[2018-01-11] MEDS: BISACODYL 10 MG SUPP PR PRN (11:35)
[2018-01-11] MEDS ORDERED: METHYLNALTREXONE BROMIDE 12 MG/0.6 ML INJ SC ONE (11:42)
[2018-01-11] MEDS ORDERED: GLYCERIN ADULT 1 EACH SUPP PR ONE (11:42)
[2018-01-11] MEDS ORDERED: MAGNESIUM CITRATE 300 ML BOTTLE PO ONE (11:42)
[2018-01-11] MEDS: NS 1,000 ML IV SCH (14:43)
--- NOTE | 2018-01-11 16:59 | HOSPPROG ---
Hospitalist Progress Note Assessment/Plan: DIAGNOSES: # SEIZURE AT HOME, FIRST EVER * On Keppra here, could change that to oral at this point * No recurrent seizures here in hospital so far * Sounds like current plans for outpatient EEG # L 1 BURST FX due to above * Status post ORIF with instrumentation and fusion T12-L2, screw augmentation * Still using some pain medicine for pain but overall improving and is doing some walking # ABNORMAL EKG (ST depressions first ekg, resolved on ) with Troponin elevations * Normal CPK rules out skeletal cause, so the troponins are cardiac in origin * Lexiscan stress test before discharge is reasonable, consider that in the next 1-2 days # POSTOP ILEUS VERSES CONSTIPATION FROM MULTIPLE MEDICINES * Has over the last 48 hr had multiple laxatives, suppositories, enemas, and has received Relistor daily past 2 d, now moving bowels * Still some intermittent cramping pain this afternoon which I think is likely due to the laxatives # FEVER NEW ONSET OVERNIGHT JANUARY 09- * Single episode of high temperature has not recurred since, uncertain significance of this but will continue follow; no concerning sign of any specific infection at present # HYPOTENSION ON ADMISSION/LONG HISTORY OF POST EXERTIONAL HYPOTENSION which is been quite bothersome to him * Patient states has had hives with exertional symptoms in past, wonder if this is an exertional or urticaria type syndrome * Past cardiology evaluations have not shown a specific cause of his post exertion hypertension; he had a normal treadmill stress test at 1 point but that episode was followed by a near syncope as he arrived at home * Would do Lexiscan here as above, and also consider referral to an coupon manifest clerk in outpatient setting # PULMONARY HTN, very mild * hx of RAD * ? if could have MADDY; could consider outpatient study for that, and also did depending on results of Lexiscan consider consulting with Cardiology to assess whether his pulmonary pressures increase with exertion significantly, would require right heart catheterization most likely # ACUTE URETHRAL INJURY from the Fine catheter * Per Dr. Umanzor's recommendations Fine should stay in through January 12; * So would remove catheter tomorrow and then follow urine output closely consider bladder scans as necessary # OSTEOPOROSIS * Previously diagnosed with DEXA scan, is on vitamin-D and calcium supplements but no anti resorptive therapy * Will benefit from referral to a bone specialist in the outpatient setting to get on appropriate therapy and further assessment for cause of his osteoporosis SUBJECTIVE: Overall notably better pain today though still some crampy intermittent lower abdominal pain, still with postop back pain. Has had 2 bowel movements so far today. No nausea no vomiting. Less distension No fever symptoms OBJECTIVE Vitals reviewed: No fever since single elevation of temperature evening of 01/09. Vital signs otherwise stable with occasional mild hypertension at this point Supervisor Instrument Mechanics, my review: Sinus Exam: alert oriented looks more comfortable than what I heard about from earlier this morning and last night when he was reportedly pacing about in the room skin warm dry color ok resps not labored lungs clear BSs heart regular abd soft nondistended nontender, bowel sounds present limbs warm, no edema Fine catheter in place is draining clear yellow urine in good volumes, appears well secured iv site ok I reviewed his CT scan images from this morning of the abdomen. Of concern to me was that in addition to signs of ileus which was mentioned by the radiologist , there is a significantly distended bladder despite presence of the Fine catheter which appears to be in proper position on the scan. Additionally there are significant bilateral pleural effusions I had the nurses do a ultrasound bladder scan at the bedside and this showed only 12 mL of urine Laboratory data: A lactic acid was done last night and is in the normal range when he was having his fever Studies done during this admission: CT scan of brain nothing acute but limited by motion artifact MRI of brain with and without contrast nothing acute and nothing to suggest a cause of seizure but limited by motion artifact MRI and CT scan of spine L1 burst fracture Echocardiogram good LV systolic and diastolic function, trivial valve abnormalities, pulmonary hypertension very mild at 42 CT abdomen pelvis showing 1. Ileus 2. Distention of bladder despite Fine catheter in place 3. Bilateral pleural effusions Objective: Vital Signs Temp Pulse Resp BP Pulse Ox 37.3 C 99 22 H 139/90 H 96 01/11/18 15:41 01/11/18 15:41 01/11/18 15:41 01/11/18 15:41 01/11/18 15:41 Laboratory Results 01/06/18 09:35 01/06/18 09:35 01/10/18 01/11/18 01/12/18 06:59 06:59 06:59 Intake Total 3321 1050 Output Total 2900 3675 650 Balance 421 -9031 -650 PT 16.8 SEC (12.0-15.0) H 01/03/18 20:45 INR 1.34 (0.83-1.16) H 01/03/18 20:45 ICD10 Worksheet Patient Problems: Problems Problem Status Onset Altered mental status Acute Compression fracture of L1 lumbar vertebra Acute Osteoporosis Acute Seizure Acute
[2018-01-11] MEDS: METHOCARBAMOL 500 MG TAB PO PRN (21:35)
[2018-01-12] MEDS: ACETAMINOPHEN 325 MG TAB PO PRN (00:24)
[2018-01-12] MEDS: DIAZEPAM 2 MG TAB PO PRN ×2 (00:25→22:18)
[2018-01-12] MEDS: oxyCODONE IR 5 MG TAB PO PRN ×4 (01:07→22:15)
[2018-01-12] MEDS: levETIRAcetam 500 MG TAB PO SCH ×2 (07:47→22:08)
[2018-01-12] MEDS: ENOXAPARIN 40 MG/0.4 ML SYR SC SCH (07:48)
[2018-01-12] MEDS: TAMSULOSIN HCL 0.4 MG CAP PO SCH (07:48)
[2018-01-12] MEDS: METHOCARBAMOL 500 MG TAB PO PRN ×2 (07:49→16:15)
--- NOTE | 2018-01-12 07:49 | NEUSURGPN ---
Date of Surgery: 01/06/18 Post Op Day: 6 Assessment/Plan: Assessment: POD#6 s/p T12-L2 instrumented fusion for L1 burst fx, patient with extremely low pain tolerance Plan: -abdominal pain improved, expected incisional discomfort -ileus management, improving -post-op xrays show good alignment with intact hardware -continue pain control, will add two days of celebrex and see if this will be of better benefit -PT/OT -rehab/SNF planning -Ok to discharge from neurosurgery standpoint, will need cleared by Medicine for ileus Patient discussed with Dr Christianson Subjective: Expected incisional pain, hesitant to take narcotics r/t recent ileus Objective: AxO x3 5/5 BLE Sensation intact to light touch BLE Incision CDI, dressed with silver dressing-quarter size drainage at proximal end Neuro Check Frequency: per routine Urinary Catheter in Place: No Catheter Insertion Date: 01/04/18 - Physician Discussed Patient with Dr.: Christianson Neurosurgery Physical Exam - Vitals, I&O, Labs I and O 01/11/18 01/12/18 01/13/18 05:59 05:59 05:59 Intake Total 2421 350 Output Total 3100 2725 Balance -679 -0143 Intake: Oral (ml) 150 350 IV Infused (ml) 2271 Ns 1,000 ml @ 75 mls/hr 2271 IV CONT TOM Rx#: [id number] Output: Urine (ml) 3100 2725 Catheter 3100 2725 Other: Output Comment Toilet sm amt of brown. mostly water Number of Stools Bedpan 1 1 Toilet 1 1 Bladder Scan Volume (ml) Catheter 12 Vital Signs Temp Pulse Resp BP Pulse Ox 36.4 C 107 H 16 122/71 H 91 L 01/12/18 07:41 01/12/18 07:41 01/12/18 07:41 01/12/18 07:41 01/12/18 07:41 Laboratory Results 01/06/18 09:35 01/06/18 09:35 ICD10 Worksheet Patient Problems: Problems Problem Status Onset Altered mental status Acute Compression fracture of L1 lumbar vertebra Acute Osteoporosis Acute Seizure Acute
[2018-01-12] MEDS: DC NARCS MISC SCH (07:50)
[2018-01-12] MEDS: SENNOSIDES/DOCUSATE SODIUM TAB PO SCH ×2 (07:51→22:09)
[2018-01-12] MEDS: REGARDING ANTICOAG MISC SCH (07:51)
--- NOTE | 2018-01-12 10:37 | HOSPPROG ---
Hospitalist Progress Note Assessment/Plan: #L1 burst fracture: POD #6 T12-L2 fusion #Post-op ileus: having BMs #Fever: UA negative. No infectious symptoms. Blood cxs NGTD #Acute urethral injury: from aguiar. Remove today and monitor UOP closely #NSTEMI: ST depression on first EKG, elevated trop. Order Lexiscan for tomorrow #Osteoporosis: diagnosed on prior DEXA scan. Has referral for outpatient Extruding Department Supervisor. Calcium/Vitamin D. Discuss fosamax with him #Syncope: reason for admission. No seizure activity per . Had NSTEMI. Proceed with Lexiscan #Deconditioning: home PT recommended #Diet: regular, NPO at [place] #Disp: cont inpatient admission for Lexican, monitor UOP. Hope to DC in 1-2 days Subjective: having BMs, no N/V Objective: Vital Signs Temp Pulse Resp BP Pulse Ox 36.4 C 107 H 16 122/71 H 91 L 01/12/18 07:41 01/12/18 07:41 01/12/18 07:41 01/12/18 07:41 01/12/18 07:41 Laboratory Results 01/06/18 09:35 01/06/18 09:35 01/11/18 01/12/18 01/13/18 05:59 05:59 05:59 Intake Total 2421 350 Output Total 3100 2725 Balance -679 -2375 PT 16.8 SEC (12.0-15.0) H 01/03/18 20:45 INR 1.34 (0.83-1.16) H 01/03/18 20:45 - Time Spent With Patient Time Spent with Patient: greater than 35 minutes Time Spent with Patient: Greater than 35 minutes spent on this patients care, greater than 50% of time spent counseling, educating, and coordinating care regarding the above mentioned plan. - Physical Exam Constitutional: no apparent distress Eyes: PERRL Ears, Nose, Mouth, Throat: moist mucous membranes Cardiovascular: regular rate and rhythym Respiratory: no respiratory distress Gastrointestinal: normoactive bowel sounds Genitourinary: no bladder fullness, aguiar in urethra Skin: warm Musculoskeletal: full muscle strength Neurologic: AAOx3, CN II-XII Intact ICD10 Worksheet Patient Problems: Problems Problem Status Onset Seizure Acute Altered mental status Acute Compression fracture of L1 lumbar vertebra Acute Osteoporosis Acute
[2018-01-12] MEDS: TRIAMCINOLONE 0.1% 15 GM CRTUBE TP SCH ×3 (12:24→22:09)
--- NOTE | 2018-01-12 15:29 | ASMTCMCOM ---
CM Note CM Note Notes: Today pt declines HHC and wants to pursue inpatient rehab or SNF. Inpatient rehab admissions staff reviewed pt and pt does qualify. Pt is accepted at [facility] and [facility] and chooses [facility]. [facility] is pursuing [employer] insurance authorization. Pt reports if insurance denies SNF and he has to go home he likely will decline HHC and follow up with outpatient therapy. D/c plan of care: [facility] SNF when medically stable and insurance authorization is obtained. Date Signed: 01/12/2018 03:29 PM Electronically Signed By:DEEPTI Weems
[2018-01-12] MEDS: diphenhydrAMINE 25 MG CAP PO PRN ×2 (16:21→22:18)
[2018-01-12] MEDS: CALCIUM CARB W/VIT D 500 MG TAB PO SCH (22:08)
[2018-01-13] MEDS ORDERED: REGADENOSON 0.4 MG/5 ML SYR IVP ONE (10:55)
[2018-01-13] MEDS: SENNOSIDES/DOCUSATE SODIUM TAB PO SCH (21:00)
[2018-01-13] MEDS: levETIRAcetam 500 MG TAB PO SCH (21:00)
[2018-01-13] MEDS: CALCIUM CARB W/VIT D 500 MG TAB PO SCH (21:00)
[2018-01-13] MEDS: TRIAMCINOLONE 0.1% 15 GM CRTUBE TP SCH (22:00)
[2018-01-13] MEDS ORDERED: ZOLPIDEM TARTRATE 5 MG TAB PO ONE (22:15)
--- NOTE | 2018-01-13 22:29 | CPR ---
[f rep st] NONINVASIVE CARDIAC PROCEDURE REPORT DATE OF PROCEDURE: 01/13/2018 PROCEDURE: Lexiscan nuclear stress test. INDICATION: Syncope. HISTORY OF PRESENT ILLNESS: The patient is a 57-year-old male who became dizzy while standing. He t hen laid down and had a true syncopal event. He did feel like he had a closing in of his vision. He denies any racing heart or chest discomfort. Upon awakening, he was aware of his surroundings and n oticed he was short of breath. He denies any history of hypertension, hyperlipidemia, diabetes, fami ly history of premature coronary artery disease, or tobacco use. PROCEDURE IN DETAIL: Consent was obtained, and the patient was placed on telemetry. His resting EKG revealed normal sinus rhythm with heart rate of 76, NJ interval 148, QRS duration of 84, and a QTc o f 473. The patient was infused with Lexiscan and complained of shortness of breath. He remained in normal sinus rhythm throughout the study but did develop significant T-wave inversion in the anterior leads. The T-waves improved within 1 minute of recovery. His blood pressure at rest was 130/70 and remained stable throughout the study. His oxygen saturation remained greater than 98% throughout th e study. PLAN: Await nuclear images. Of note, his QTc was borderline at rest at 473. His repeat EKG during the procedure increased to 494. Consider long QT as a cause for syncope. /[id number]/MODL
[2018-01-14] MEDS: DIAZEPAM 2 MG TAB PO PRN (00:40)
[2018-01-14] MEDS: oxyCODONE IR 5 MG TAB PO PRN (00:40)
[2018-01-14] MEDS: ENOXAPARIN 40 MG/0.4 ML SYR SC SCH ×2 (05:50→08:22)
[2018-01-14] MEDS: CALCIUM CARB W/VIT D 500 MG TAB PO SCH ×3 (05:50→20:28)
[2018-01-14] MEDS: SENNOSIDES/DOCUSATE SODIUM TAB PO SCH ×3 (05:51→20:28)
[2018-01-14] MEDS: levETIRAcetam 500 MG TAB PO SCH ×3 (05:51→20:28)
[2018-01-14] MEDS: TRIAMCINOLONE 0.1% 15 GM CRTUBE TP SCH ×4 (05:52→23:36)
[2018-01-14] MEDS: TAMSULOSIN HCL 0.4 MG CAP PO SCH ×2 (05:52→08:22)
--- NOTE | 2018-01-14 08:31 | NEUSURGPN ---
Date of Surgery: 01/06/18 Post Op Day: 8 Assessment/Plan: Assessment: POD#8 s/p T12-L2 instrumented fusion for L1 burst fx Plan: -pain controlled, continue current regimen -ileus management, improving, has had BM -post-op xrays show good alignment with intact hardware -PT/OT -rehab/SNF planning -Ok to discharge from neurosurgery standpoint Patient discussed with Dr Christianson Subjective: Having lower back pain. No leg symptoms. Objective: Awake. Alert. PERRL. Facial expression symmetrical Speech fluent Muscle strength full at 5/5 Sensation intact Catheter Insertion Date: 01/04/18 - Physician Discussed Patient with Dr.: Christianson Neurosurgery Physical Exam - Vitals, I&O, Labs I and O 01/13/18 01/14/18 01/15/18 05:59 05:59 05:59 Intake Total 900 Output Total 550 Balance 350 Intake: Oral (ml) 900 Output: Urine (ml) 550 Toilet 550 Other: Intake Quantity Yes Sufficient Number of Voids Toilet 2 Number of Stools Toilet 1 Vital Signs Temp Pulse Resp BP Pulse Ox 36.4 C 81 14 104/62 94 01/14/18 08:00 01/14/18 08:00 01/14/18 08:00 01/14/18 08:00 01/14/18 08:00 Laboratory Results 01/06/18 09:35 01/06/18 09:35 ICD10 Worksheet Patient Problems: Problems Problem Status Onset Altered mental status Acute Compression fracture of L1 lumbar vertebra Acute Osteoporosis Acute Seizure Acute
[2018-01-14] MEDS: METHOCARBAMOL 500 MG TAB PO PRN ×2 (11:12→20:28)
[2018-01-14] MEDS: ACETAMINOPHEN 325 MG TAB PO PRN ×2 (11:12→20:27)
--- NOTE | 2018-01-14 12:07 | HOSPPROG ---
Hospitalist Progress Note Assessment/Plan: Babar is a 57-year-old male who presented to the emergency room after having a syncopal versus seizure event. Today is my 1st encounter with the patient. Chart reviewed. Reviewed the various consultations during his stay. #L1 burst fracture: POD #8 T12-L2 fusion # seizure versus syncope -to get outpatient EEG monitoring, on Keppra #Post-op ileus: Resolved #Fever: UA negative. No infectious symptoms. Blood cxs NGTD #Acute urethral injury: from aguiar. -Aguiar was removed and patient is voiding #NSTEMI: ST depression on first EKG, elevated trop. -Myocardial perfusion scan showed no ischemia, no infarct, no focal wall abnormalities #Osteoporosis: diagnosed on prior DEXA scan. Has referral for outpatient Ap Processor. Calcium/Vitamin D. Discuss Fosamax with him #Syncope: reason for admission. No seizure activity per . Had NSTEMI. -could consider long QT -patient also has exercise induced anaphylaxis and has had issues with syncopal type events in the past -he was seen and evaluated by Cardiology during his stay * insomnia -will add melatonin #Deconditioning: Patient is requesting to go to a alf facility for strengthening. #Diet: regular #Dispo: Pending Subjective: Babar is c/o some abdominal discomfort. Objective: Vital Signs Temp Pulse Resp BP Pulse Ox 36.4 C 81 14 104/62 94 01/14/18 08:00 01/14/18 08:00 01/14/18 08:00 01/14/18 08:00 01/14/18 08:00 Laboratory Results 01/06/18 09:35 01/06/18 09:35 01/13/18 01/14/18 01/15/18 05:59 05:59 05:59 Intake Total 900 Output Total 550 Balance 350 PT 16.8 SEC (12.0-15.0) H 01/03/18 20:45 INR 1.34 (0.83-1.16) H 01/03/18 20:45 - Physical Exam Constitutional: uncomfortable Eyes: PERRL Ears, Nose, Mouth, Throat: hearing normal Cardiovascular: regular rate and rhythym Respiratory: no respiratory distress Gastrointestinal: normoactive bowel sounds Skin: warm Musculoskeletal: generalized weakness Neurologic: AAOx3 Psychiatric: interacting appropriately ICD10 Worksheet Patient Problems: Problems Problem Status Onset Altered mental status Acute Compression fracture of L1 lumbar vertebra Acute Osteoporosis Acute Seizure Acute
--- NOTE | 2018-01-14 14:57 | SOAPPROG ---
[facility] Patient Name: BRANDIE VALDEZ Rpt#: [id number] Unit Number: [id number] Attending/ER Physician: Elvia Mcleod MD Patient Type: ADM IN Adm Date/Source: 01/03/18 EMR Discharge Date: Primary Carrier: [employer] PPO HMO OPEN ACC LOCAL SOAP NOTE SOAP Progress Note Assessment/Plan: Assessment: POD#7 s/p T12-L2 instrumented fusion for L1 burst fx, patient with low pain tolerance Plan: -abdominal pain improved, expected incisional discomfort -post-op xrays show good alignment with intact hardware -continue pain control -PT/OT -rehab/SNF planning -Ok to discharge from neurosurgery standpoint, will need cleared by Medicine for ileus Subjective: awake, alert, states he received IV Morphine not long ago due to pain and no narcotics since last night. Was not given PO meds due to empty stomach. Denies numbness, tingling or weakness. Patient tolerates walking well, but not sitting due to "pressure" in his low back below incision. Objective: AxO x3 5/5 BLE Sensation intact to light touch BLE Incision CDI, dressed with silver dressing Objective: Vital Signs Temp Pulse Resp BP Pulse Ox 36.8 C 86 126 H 130/77 H 90 L 01/12/18 23:21 01/12/18 23:21 01/12/18 23:21 01/12/18 23:21 01/12/18 23:21 Laboratory Results 01/06/18 09:35 01/06/18 09:35 01/12/18 01/13/18 01/14/18 05:59 05:59 05:59 Intake Total 350 400 Output Total 2725 550 Balance -2375 -150 PT 16.8 SEC (12.0-15.0) H 01/03/18 20:45 INR 1.34 (0.83-1.16) H 01/03/18 20:45 ICD10 Worksheet Patient Problems: Problems Problem Status Onset Altered mental status Acute Compression fracture of L1 lumbar vertebra Acute Osteoporosis Acute Seizure Acute *This report may have been compiled using a voice recognition system, and might contain typographical errors and blanks.* Fahad FRITZ 01/13/18 0759 <Electronically signed by Fahad FRITZ> [id number] T: ELIEZER 01/13/18 0755 CC:
[2018-01-14] MEDS: diphenhydrAMINE 25 MG CAP PO PRN (18:18)
[2018-01-14] MEDS: POLYETHYLENE GLYCOL 3350 17 GM PKT PO PRN (18:18)
[2018-01-14] MEDS: MELATONIN 3 MG TAB PO SCH (20:28)
[2018-01-14] MEDS: ZOLPIDEM TARTRATE 5 MG TAB PO PRN (23:36)
[2018-01-15] MEDS: oxyCODONE IR 5 MG TAB PO PRN (00:38)
[2018-01-15] MEDS: ACETAMINOPHEN 325 MG TAB PO PRN ×3 (05:19→20:48)
[2018-01-15] MEDS: METHOCARBAMOL 500 MG TAB PO PRN ×3 (05:19→20:48)
[2018-01-15] MEDS: ENOXAPARIN 40 MG/0.4 ML SYR SC SCH (08:04)
[2018-01-15] MEDS: SENNOSIDES/DOCUSATE SODIUM TAB PO SCH ×2 (08:04→20:48)
[2018-01-15] MEDS: CALCIUM CARB W/VIT D 500 MG TAB PO SCH ×2 (08:05→20:48)
[2018-01-15] MEDS: TAMSULOSIN HCL 0.4 MG CAP PO SCH (08:05)
[2018-01-15] MEDS: levETIRAcetam 500 MG TAB PO SCH ×2 (08:05→20:48)
[2018-01-15] MEDS: LACTULOSE 20 GM/30 ML UDCUP PO PRN (08:11)
--- NOTE | 2018-01-15 08:30 | NEUSURGPN ---
Assessment/Plan: Assessment: Plan: 01/06/18 21:21 Assessment/Plan: Assessment: POD#9 s/p T12-L2 instrumented fusion for L1 burst fx Plan: -pain controlled, continue current regimen -ileus management, improving, has had BM -post-op xrays show good alignment with intact hardware -PT/OT -rehab/SNF planning- hopeful to [facility] today vs tomorrow if insurance approves -Ok to discharge from neurosurgery standpoint , will follow up with us in 3-4 [address] Patient discussed [address] Christianson Subjective: Having lower back pain as expected mostly muscular that is worse with sitting or standing and better when laying down. Getting stronger eacy day per patient. Objective: Awake. Alert. Speech fluent Muscle strength full at 5/5 BLE Sensation intact Incision c/d/i Catheter Insertion Date: 01/04/18 - Physician Discussed Patient with Dr.: Christianson Neurosurgery Physical Exam - Vitals, I&O, Labs I and O 01/14/18 01/15/18 01/16/18 05:59 05:59 05:59 Intake Total 1700 Balance 1700 Intake: Oral (ml) 1700 Other: Intake Quantity Yes Sufficient Number of Voids Toilet 3 Microbiology 01/09/18 22:39 Blood Culture - Final Blood 01/09/18 22:30 Blood Culture - Final Blood Vital Signs Temp Pulse Resp BP Pulse Ox 36.4 C 81 18 116/73 95 01/15/18 07:43 01/15/18 07:43 01/15/18 07:43 01/15/18 07:43 01/15/18 07:43 Laboratory Results 01/06/18 09:35 01/06/18 09:35 ICD10 Worksheet Patient Problems: Problems Problem Status Onset Altered mental status Acute Compression fracture of L1 lumbar vertebra Acute Osteoporosis Acute Seizure Acute
[2018-01-15] MEDS: TRIAMCINOLONE 0.1% 15 GM CRTUBE TP SCH ×3 (11:57→20:52)
--- NOTE | 2018-01-15 13:23 | HOSPPROG ---
Hospitalist Progress Note Assessment/Plan: Babar is a 57-year-old male who presented to the emergency room after having a syncopal versus seizure event. Today is my 1st encounter with the patient. Chart reviewed. Reviewed the various consultations during his stay. #L1 burst fracture: POD #9 T12-L2 fusion # seizure versus syncope -to get outpatient EEG monitoring, on Keppra #Post-op ileus: Resolved #Fever: UA negative. No infectious symptoms. Blood cxs NGTD #Acute urethral injury: from aguiar. -Aguiar was removed and patient is voiding #NSTEMI: ST depression on first EKG, elevated trop. -Myocardial perfusion scan showed no ischemia, no infarct, no focal wall abnormalities #Osteoporosis: diagnosed on prior DEXA scan. Has referral for outpatient Electronic Game Developer. Calcium/Vitamin D. Discuss Fosamax with him #Syncope: reason for admission. No seizure activity per . Had NSTEMI. -could consider long QT -patient also has exercise induced anaphylaxis and has had issues with syncopal type events in the past -he was seen and evaluated by Cardiology during his stay * insomnia -will add melatonin #Deconditioning: physical therapy is recommending SNF for strengthening #Diet: regular #Dispo: Pending Subjective: Babar is feeling well,feels too unsteady to be dc home. Objective: Vital Signs Temp Pulse Resp BP Pulse Ox 36.4 C 81 18 116/73 95 01/15/18 07:43 01/15/18 07:43 01/15/18 07:43 01/15/18 07:43 01/15/18 07:43 Microbiology 01/09/18 22:39 Blood Culture - Final Blood 01/09/18 22:30 Blood Culture - Final Blood Laboratory Results 01/06/18 09:35 01/06/18 09:35 01/14/18 01/15/18 01/16/18 05:59 05:59 05:59 Intake Total 1700 Balance 1700 PT 16.8 SEC (12.0-15.0) H 01/03/18 20:45 INR 1.34 (0.83-1.16) H 01/03/18 20:45 - Physical Exam Constitutional: no apparent distress, appears nourished, not in pain Eyes: PERRL Ears, Nose, Mouth, Throat: hearing normal Cardiovascular: regular rate and rhythym Respiratory: no respiratory distress Gastrointestinal: normoactive bowel sounds Skin: warm Musculoskeletal: generalized weakness Neurologic: AAOx3 Psychiatric: interacting appropriately ICD10 Worksheet Patient Problems: Problems Problem Status Onset Altered mental status Acute Compression fracture of L1 lumbar vertebra Acute Osteoporosis Acute Seizure Acute
--- NOTE | 2018-01-15 13:36 | HOSPPROG ---
Hospitalist Progress Note Assessment/Plan: Babar is a 57-year-old male who presented to the emergency room after having a syncopal versus seizure event. Today is my 1st encounter with the patient. Chart reviewed. Reviewed the various consultations during his stay. #L1 burst fracture: POD #9 T12-L2 fusion # seizure versus syncope -to get outpatient EEG monitoring, on Keppra #Post-op ileus: Resolved #Fever: UA negative. No infectious symptoms. Blood cxs NGTD #Acute urethral injury: from aguiar. -Aguiar was removed and patient is voiding #NSTEMI: ST depression on first EKG, elevated trop. -Myocardial perfusion scan showed no ischemia, no infarct, no focal wall abnormalities #Osteoporosis: diagnosed on prior DEXA scan. Has referral for outpatient Medication Technician. Calcium/Vitamin D. Discuss Fosamax with him #Syncope: reason for admission. No seizure activity per . Had NSTEMI. -could consider long QT -patient also has exercise induced anaphylaxis and has had issues with syncopal type events in the past -he was seen and evaluated by Cardiology during his stay * insomnia -will add melatonin #Deconditioning: Patient is requesting to go to a assisted facility for strengthening. #Diet: regular #Dispo: reviewed PT notes, and recommendation is SNF, he would greatly benefit this on dc Objective: Vital Signs Temp Pulse Resp BP Pulse Ox 36.4 C 81 18 116/73 95 01/15/18 07:43 01/15/18 07:43 01/15/18 07:43 01/15/18 07:43 01/15/18 07:43 Microbiology 01/09/18 22:39 Blood Culture - Final Blood 01/09/18 22:30 Blood Culture - Final Blood Laboratory Results 01/06/18 09:35 01/06/18 09:35 01/14/18 01/15/18 01/16/18 05:59 05:59 05:59 Intake Total 1700 Balance 1700 PT 16.8 SEC (12.0-15.0) H 01/03/18 20:45 INR 1.34 (0.83-1.16) H 01/03/18 20:45 ICD10 Worksheet Patient Problems: Problems Problem Status Onset Altered mental status Acute Compression fracture of L1 lumbar vertebra Acute Osteoporosis Acute Seizure Acute
--- NOTE | 2018-01-15 14:52 | ASMTCMCOM ---
CM Note CM Note Notes: Today Ankit denies SNF authorization, Hospitalist Jones called peer to peer and this results in pt approved for 1 week at [facility]. Pt to d/c tomorrow. Pt updated. CM to follow. Date Signed: 01/15/2018 02:52 PM Electronically Signed By:DEEPTI Weems
[2018-01-15] MEDS: POLYETHYLENE GLYCOL 3350 17 GM PKT PO PRN (15:21)
[2018-01-15] MEDS: MELATONIN 3 MG TAB PO SCH (20:49)
[2018-01-15] MEDS: diphenhydrAMINE 25 MG CAP PO PRN (22:51)
[2018-01-15] MEDS: ZOLPIDEM TARTRATE 5 MG TAB PO PRN (22:51)
[2018-01-16] MEDS: oxyCODONE IR 5 MG TAB PO PRN ×3 (00:12→04:56)
[2018-01-16] MEDS: DIAZEPAM 2 MG TAB PO PRN (00:17)
[2018-01-16] MEDS: METHOCARBAMOL 500 MG TAB PO PRN ×2 (05:06→13:20)
[2018-01-16] MEDS: ACETAMINOPHEN 325 MG TAB PO PRN ×2 (05:06→13:19)
--- NOTE | 2018-01-16 08:26 | HOSPPROG ---
Hospitalist Progress Note Assessment/Plan: Babar is a 57-year-old male who presented to the emergency room after having a syncopal versus seizure event. Today is my 1st encounter with the patient. Chart reviewed. Reviewed the various consultations during his stay. #L1 burst fracture: POD #10 T12-L2 fusion # seizure versus syncope -to get outpatient EEG monitoring, on Keppra #Post-op ileus: Resolved #Fever: UA negative. No infectious symptoms. Blood cxs NGTD #Acute urethral injury: from aguiar. -Aguiar was removed and patient is voiding #NSTEMI: ST depression on first EKG, elevated trop. -Myocardial perfusion scan showed no ischemia, no infarct, no focal wall abnormalities #Osteoporosis: diagnosed on prior DEXA scan. Has referral for outpatient [facility]. Calcium/Vitamin D. Discuss Fosamax with him #Syncope: reason for admission. No seizure activity per . Had NSTEMI. -could consider long QT -patient also has exercise induced anaphylaxis and has had issues with syncopal type events in the past -he was seen and evaluated by Cardiology during his stay * insomnia -little improvement w Melatonin -slept well w Valium #Deconditioning: physical therapy is recommending SNF for strengthening #Diet: regular #Dispo: dc to rehab today Subjective: Babar is sleepy this morning, no complaints. Objective: Vital Signs Temp Pulse Resp BP Pulse Ox 36.7 C 83 18 120/71 95 01/15/18 23:05 01/15/18 23:05 01/15/18 23:05 01/15/18 23:05 01/15/18 23:05 Microbiology 01/09/18 22:39 Blood Culture - Final Blood 01/09/18 22:30 Blood Culture - Final Blood Laboratory Results 01/06/18 09:35 01/06/18 09:35 01/15/18 01/16/18 01/17/18 05:59 05:59 05:59 Intake Total 1700 800 Balance 1700 800 PT 16.8 SEC (12.0-15.0) H 01/03/18 20:45 INR 1.34 (0.83-1.16) H 01/03/18 20:45 - Physical Exam Constitutional: no apparent distress, appears nourished Ears, Nose, Mouth, Throat: hearing normal Respiratory: no respiratory distress Skin: warm Neurologic: AAOx3 Psychiatric: interacting appropriately ICD10 Worksheet Patient Problems: Problems Problem Status Onset Altered mental status Acute Compression fracture of L1 lumbar vertebra Acute Osteoporosis Acute Seizure Acute
--- NOTE | 2018-01-16 08:44 | PDIAF ---
- Diagnosis Diagnosis: L1 burst fracture, syncope vs seizure Code Status: Full Code - Medication Management Discharge Medications: Medications to Continue on Transfer Fluticasone/Salmeterol [Advair Hfa 115-21 Mcg Inhaler] 2 puffs IH BID PRN [Last Taken Unknown] Acetaminophen [Acetaminophen Extra Strength] 500 mg PO Q4H PRN 01/03/18 [Last Taken Unknown] Cetirizine [ZyrTEC 10 mg (*)] 10 mg PO DAILY PRN 01/03/18 [Last Taken Unknown] Oxymetazoline HCl [Afrin Nasal [place]] 1 spray EACHNARE BID PRN 01/03/18 [Last Taken Unknown] Phenylephrine HCl [Nasal Decongestant PE] 10 mg PO BID PRN 01/03/18 [Last Taken 01/03/18] Pseudoephedrine HCl [Sinus 12 Hour] 120 mg PO BID PRN 01/03/18 [Last Taken Unknown] diphenhydrAMINE [Benadryl 25 MG (*)] 25 mg PO Q6H PRN 01/03/18 [Last Taken Unknown] Clobetasol 0.05% [Temovate Topical Solution] 25 ml TP DAILY PRN 01/04/18 [Last Taken Unknown] Calcium Carb W/Vit D [Calcium Carb W/Vit D 500/200 (*)] 500 mg PO BID tab 01/16 [Last Taken Unknown] Diazepam [Valium 2 MG (*)] 5 mg PO HS PRN #1 tab 01/16/18 [Last Taken Unknown] Melatonin [Melatonin 3 MG (*)] 3 mg PO HS tab 01/16/18 [Last Taken Unknown] Methocarbamol [Robaxin 500 mg (*)] 1,500 mg PO TID PRN tab 01/16/18 [Last Taken Unknown] Polyethylene Glycol 3350 [Miralax 17 gm (*)] 17 gm PO DAILY PRN pkt 01/16/18 [ Last Taken Unknown] Sennosides/Docusate Sodium [Senokot-S] 1 - 2 tab PO BID tab 01/16/18 [Last Taken Unknown] Simethicone [Mylicon] 160 mg PO Q4HRS PRN tab.chew 01/16/18 [Last Taken Unknown ] Tamsulosin HCl [Flomax 0.4 MG (*)] 0.4 mg PO DAILY cap 01/16/18 [Last Taken Unknown] levETIRAcetam [Keppra 500 mg (*)] 750 mg PO BID tab 01/16/18 [Last Taken Unknown] oxyCODONE IR [Oxycodone Ir (*)] 5 - 15 mg PO Q4HRS PRN tab 01/16/18 [Last Taken Unknown] Additional Medication Instructions: new med is valium, use only to help w sleep. Flomax and keppra are also new medications. Discharge Medications: Refer to the Discharge Home Medication list for PRN reason. PIC Care - Routine: N/A - Orders Services needed: Physical Therapy, Occupational Therapy Additional Instructions: [facility] F/u: January 15 at 9:30: Stress Test Appt at [facility] (No caffeine, including decaf coffee, for 12 hours prior). January 19 at 1:30: Follow up Appt with Dr. Mcallister at [facility]. A male infertility specialist will be mailed to you at home and they will call you with instructions. Spine: No bending or twisting Do not lift greater than 10 pounds No brace needed Ok to shower daily No NSAID's for 6 months F/u with Dr Christianson in 3 weeks F/u with Dr Brown with neurology to evaluate if you need an EEG-see in 4 weeks 90 day of driving restrictions and seizure precautions (no swimming alone, do not climb ladders, etc) continue Keppra 750mg bid until you f/u with neurology - Follow Up Care Current Providers and Referrals: Thierno Christianson MD [Medical Doctor] - follow up in 2 weeks Tayler Issa MD [Medical Doctor] - (Call for appointment. Please see me in the office 2 weeks from the time of aguiar removal. This date will be around January 25 Follow up for further evaluation of urinary retention. ) Patient,NotPresent [Unknown] - As per Instructions Tyron Brown DO [Doctor of Osteopathy] - (F/u in 4-6 weeks w/ Dr Brown 90 days of driving restrictions / seizure precautions since the day of event He should stay on Keppra 750 mg twice daily until neurological follow-up with Dr Brown ) Cristian Mcallister MD [Medical Doctor] -
--- NOTE | 2018-01-16 08:57 | NEUSURGPN ---
Date of Surgery: 01/06/18 Post Op Day: 10 Assessment/Plan: Assessment: POD#10 s/p T12-L2 instrumented fusion for L1 burst fx Plan: -pain controlled, continue current regimen -ileus management, resolved, has had BM -post-op xrays show good alignment with intact hardware -PT/OT -to rehab today Subjective: Continues to have localized back pain. No lower extremity pain, numbness, tingling. Objective: Awake. Alert Following commands Strength full at 5/5 Sensation intact Incision with dressing c/d/i Catheter Insertion Date: 01/04/18 - Physician Discussed Patient with : Meghan Neurosurgery Physical Exam - Vitals, I&O, Labs I and O 01/15/18 01/16/18 01/17/18 05:59 05:59 05:59 Intake Total 1700 800 Balance 1700 800 Intake: Oral (ml) 1700 800 Other: Intake Quantity Yes Yes Sufficient Number of Voids Toilet 3 1 Number of Stools Toilet 2 Microbiology 01/09/18 22:39 Blood Culture - Final Blood 01/09/18 22:30 Blood Culture - Final Blood Vital Signs Temp Pulse Resp BP Pulse Ox 36.7 C 83 18 120/71 95 01/15/18 23:05 01/15/18 23:05 01/15/18 23:05 01/15/18 23:05 01/15/18 23:05 Laboratory Results 01/06/18 09:35 01/06/18 09:35 ICD10 Worksheet Patient Problems: Problems Problem Status Onset Altered mental status Acute Compression fracture of L1 lumbar vertebra Acute Osteoporosis Acute Seizure Acute
[2018-01-16 09:30] VITALS: BP 105/60
[2018-01-16] MEDS: SENNOSIDES/DOCUSATE SODIUM TAB PO SCH (09:31)
[2018-01-16] MEDS: levETIRAcetam 500 MG TAB PO SCH (09:31)
[2018-01-16] MEDS: CALCIUM CARB W/VIT D 500 MG TAB PO SCH (09:31)
[2018-01-16] MEDS: ENOXAPARIN 40 MG/0.4 ML SYR SC SCH (09:31)
[2018-01-16] MEDS: TAMSULOSIN HCL 0.4 MG CAP PO SCH (09:31)
[2018-01-16] MEDS: POLYETHYLENE GLYCOL 3350 17 GM PKT PO PRN (09:31)
--- NOTE | 2018-01-16 09:39 | GDS ---
[f rep st] DISCHARGE SUMMARY DISCHARGE DIAGNOSES: 1. L1 burst fracture. 2. Seizure versus syncopal event. 3. Postoperative ileus. 4. Fever. 5. Acute urethral injury. 6. Non-ST elevation myocardial infarction. 7. Osteoporosis. 8. Most likely syncopal event. 9. Insomnia. 10. Deconditioning with gait instability. CONSULTATIONS: 1. Armani Hill MD. 2. Tayler Issa MD. 3. Dr. Ramon Crespo. HISTORY: Briefly, the patient is a 57-year-old gentleman with a past medical history of asthma and allergies, who presented with syncopal versus seizure event at home. The patient's provided much of his history as the patient was somnolent and distracted by his back pain. EMS arrived to his home, and his blood pressure was 60/30. On arrival, he was diaphoretic. In the emergency room, he was complaining of severe back pain. He had a lumbar spine x -ray that showed an L1 acute fracture. He had surgery for his L1 burst fracture. He was seen and evaluated by Neurology. He had a brain MRI performed for further evaluation. This was performed on January 04. This was limited due to his movement, but it showed no acute infarct, hydrocephalus, mass effect, or epidural/subdural hematomas. He has mild sinusitis. No enhancing lesions were seen. He was started on Keppra prophylactically for seizure treatment. He was seen by Urology for urinary retention. The nurse was unable to place the Fine. He had a traumatic Fine catheter placement, and the Fine stayed in place for 7 days. He improved with the treatment of Flomax, and the Fine was removed, and he has overall done well. He also had a non-STEMI, he was seen and evaluated by Cardiology. An echocardiogram was performed. This showed an EF of 75%. He had no regional wall abnormality. He has grade 1 diastolic dysfunction. Subsequently, during his stay, he had a myocardial perfusion scan that showed a normal left ventricular ejection fraction of 76%. He had no focal wall abnormalities and no definite ischemia or infarct. Today, the plan is for him to go to rehab for strengthening. He has had difficulty with ambulation without assist and has required a gait belt. He will further follow up with the consultations on discharge. HOSPITAL COURSE: 1. L1 burst fracture. He is postop day #10 for T12 to L2 fusion. 2. Seizure versus syncope. He is to get EEG monitoring in the outpatient setting. He will be on Keppra. He is on driving restrictions and seizure precautions for the next 3 months. 3. Postoperative ileus, resolved. 4. Fever. Blood cultures were checked, which showed no growth. His urinalysis was negative. 5. Acute urethral injury, resolved. 6. Non-ST elevation myocardial infarction. He had ST depression on his first EKG and an elevated troponin. His myocardial perfusion scan showed no ischemia , no infarct, and no focal wall abnormalities. 7. Osteoporosis. This was diagnosed on a prior DEXA scan. 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 8. Syncope. It could be secondary to a long QT interval. He has followup care with cardiology. 9. Insomnia. Little improvement with melatonin. He slept well with Valium. Will continue this at discharge. 10. Deconditioning. He will get physical therapy and occupational therapy at the rehab facility. DISCHARGE CONDITION: Stable. Blood pressure is 120/71, heart rate 83, respiratory rate of 18, O2 sats on room air are 95%. Temperature is 36.7 Celsius. DISCHARGE MEDICATIONS: Please see the EMR. DISCHARGE INSTRUCTIONS: 1. To follow up with Charles Spangler and get a stress test. He also has an appointment with Dr. Сергей Mcallister on January 19. 2. A night monitor will be mailed to his home, and they will call with instructions. 3. No NSAIDs x6 months. 4. To follow up with Dr. Brown to see if he needs an EEG, to see him in 4 weeks. 5. Ninety days of no driving and seizure precautions, including no swimming alone. Do not climb ladders. 6. Continue Keppra b.i.d. until he follows up with Neurology. 7. In regard to his spine, he is not to bend or twist and not to lift greater than 10 pounds. Okay to shower. Greater than 30 minutes discharging and coordinating the patient's care. /[id number]/MODL MTDD
--- NOTE | 2018-01-16 09:45 | ASMTLACE ---
LACE Length of stay for Answers: 7-13 days current admission Acuity / Level of Answers: Yes Care: Did the patient have an inpatient admission? Comorbidities - select Answers: Chronic pulmonary disease all that apply History of falls Other Notes: Compression fx # of Emergency department Answers: 1-2 visits in the last 6 months Score: 15 Date Signed: 01/16/2018 09:44 AM Electronically Signed By:DEEPTI Weems
[2018-01-16] MEDS: TRIAMCINOLONE 0.1% 15 GM CRTUBE TP SCH (10:53)
--- NOTE | 2018-01-16 14:52 | ASDISCHSUM ---
Discharge Information Plan Status:Home with Home Health Medically Cleared to Leave: Discharge Date:01/16/2018 02:32 PM CM D/C Disposition: ADT D/C Disposition:Residential Facility Projected Discharge Date:01/13/2018 11:00 AM Transportation at D/C: Discharge Delay Reason: Follow-Up Date:01/13/2018 11:00 AM Discharge Slot: Final Diagnosis:Syncope vs Sz, Hypotension, OP, L1 compression fx Placement Information Referral Type:*Home Health Care Services Referral ID:[id number] Provider Name: Address 1: Phone Number: Address 2: Fax Number: City: Selection Factors: State: Referral Type:*Fdc/SNF Referral ID:[facility]-[id number] Provider Name:[facility] Address 1:[address] Address 2: City:[place] Selection Factors: State:[place] Patient Contact Information Contact Name:EMILIANA Relationship: Address:[address] City:[place] Alternate Phone: State/Zip Code:[place] [address] Email: Financial Information Financial Class:[facility] [place] Primary Plan Desc:[employer] [facility] Primary Plan Number:[id number] Secondary Plan Desc: Secondary Plan Number: Assessment Information LACE LACE Length of stay for Answers: 7-13 days current admission Acuity / Level of Answers: Yes Care: Did the patient have an inpatient admission? Comorbidities - select Answers: Chronic pulmonary disease all that apply History of falls Other Notes: Compression fx # of Emergency department Answers: 1-2 visits in the last 6 months Score: 15 Date Signed: 01/16/2018 09:44 AM Electronically Signed By:DEEPTI Weems [facility] Progress Note CM Note CM Note Notes: 57yr old male found down at home by his : syncope vs sz also complaints of back pain-L1 compression fx. He has a Hx of RAD, OP, Asthma, OP. Cardiology and Neuro surg consults. CM to follow. Date Signed: 01/04/2018 01:47 PM Electronically Signed By:Patricia Lui LCSW [facility] Progress Note CM Note CM Note Notes: Patient is POD #1 T12-L2 posterior fusion and L1 lami. He being encouraged to get up with assistance and increase activity as tolerated. Initial PT eval today was limited by patient's pain and anxiety, but patient will likely be able to d/c home with and possible home PT. Case Management will follow. Date Signed: 01/07/2018 12:18 PM Electronically Signed By:Carey Caceres RN [facility] Progress Note CM Note CM Note Notes: CM met w/ pt for dispo planning. Therapies are recommending HC. Pt does not have a preference on HC agencies as long as it is covered by [employer]. Referrals sent to HC agencies. CM confirmed pts address and phone number. Pts PCP is Dr. Collins. CM to follow. Plan: HC; PT, OT Date Signed: 01/09/2018 04:51 PM Electronically Signed By:GRANT De GuzmanW BC CM Progress Note CM Note CM Note Notes: [facility] will get ins auth on Friday. [facility] unable to take until Friday. [facility] cannot take at all. CM to follow. Date Signed: 01/10/2018 03:56 PM Electronically Signed By:Savannah Peters LCSW BC CM Progress Note CM Note CM Note Notes: Today pt declines HHC and wants to pursue inpatient rehab or SNF. Inpatient rehab admissions staff reviewed pt and pt does qualify. Pt is accepted at [facility] and [facility] and chooses [facility]. [facility] is pursuing [employer] insurance authorization. Pt reports if insurance denies SNF and he has to go home he likely will decline HHC and follow up with outpatient therapy. D/c plan of care: [facility] SNF when medically stable and insurance authorization is obtained. Date Signed: 01/12/2018 03:29 PM Electronically Signed By:DEEPTI Weems BC CM Progress Note CM Note CM Note Notes: Today [facility] denies [facility] authorization, Hospitalist Robert called peer to peer and this results in pt approved for 1 week at [facility]. Pt to d/c tomorrow. Pt updated. CM to follow. Date Signed: 01/15/2018 02:52 PM Electronically Signed By:DEEPTI Weems [facility] CM Progress Note CM Note CM Note Notes: Pt medically stable for d/c to [facility]. [facility] has Ankit Rivear with [facility] scheduled wc transport for 1500. Orders sent in [employer]. GERARDO Swanson called report. Date Signed: 01/16/2018 02:51 PM Electronically Signed By:DEEPTI Weems Intervention Information
== END 2018-01-16 14:32 | DRG 459 ==
LOC: EDUNIT# → UNDOADMIN 20:26 → INTOOBSV 20:26 → OBSVTOIN 20:26 → F2N 21:35 → F3N 01-08 17:11 → F2N 01-08 17:11 → F3N 01-10 17:51 → UNDODISIN 01-16 14:32
PROVIDERS: ADMIT Internal Medicine; ATTEND Internal Medicine
PROC: 0T9B80Z Drainage of Bladder with Drainage Device, Via Natural or Artificial Opening Endoscopic (ICD-10-PCS; 2018-01-04)
PROC: 2W35X3Z Immobilization of Back using Brace (ICD-10-PCS; 2018-01-04)
PROC: 00NX0ZZ Release Thoracic Spinal Cord, Open Approach (ICD-10-PCS; principal; 2018-01-06 17:00)
PROC: 0RGA071 Fusion of Thoracolumbar Vertebral Joint with Autologous Tissue Substitute, Posterior Approach, Posterior Column, Open Approach (ICD-10-PCS; principal; 2018-01-06 17:00)
PROC: 0QU00JZ Supplement Lumbar Vertebra with Synthetic Substitute, Open Approach (ICD-10-PCS; principal; 2018-01-06 17:00)
PROC: 0PU40JZ Supplement Thoracic Vertebra with Synthetic Substitute, Open Approach (ICD-10-PCS; principal; 2018-01-06 17:00)
PROC: 00NY0ZZ Release Lumbar Spinal Cord, Open Approach (ICD-10-PCS; principal; 2018-01-06 17:00)
DX: S32.011A Stable burst fracture of first lumbar vertebra, initial encounter for closed fracture (principal); W07.XXXA Fall from chair, initial encounter; I21.4 Non-ST elevation (NSTEMI) myocardial infarction; K91.89 Other postprocedural complications and disorders of digestive system; R56.9 Unspecified convulsions; R50.9 Fever, unspecified; S37.39XA Other injury of urethra, initial encounter; Y84.6 Urinary catheterization as the cause of abnormal reaction of the patient, or of later complication, without mention of misadventure at the time of the procedure; M81.0 Age-related osteoporosis without current pathological fracture; G47.00 Insomnia, unspecified; R26.81 Unsteadiness on feet; R33.9 Retention of urine, unspecified; J45.909 Unspecified asthma, uncomplicated; E86.0 Dehydration; I27.20 Pulmonary hypertension, unspecified; K59.00 Constipation, unspecified
CPT/HCPCS: 82435-PO; 82565-PO; 82947-PO; 84132-PO; 84295-PO; 84481-90; 84484-PO; 84520-PO; 85014-PO; 92507-GN; 92523-GN; 96365; 97112-GP; 97116-GP; 97162-GP; 97166-GO; 97530-GO; 97530-GP; 97535-GO; A9500; A9585; C1713; C1762; G0378; G0480; J0171; J0690; J1170; J1200; J1650; J1953; J2060; J2212; J2270; J2405; J2704; J2785; J3010; Q9967

== ENCOUNTER → 2018-03-25 | Outpatient (CLI) | payer OTHER | LOC: BMCIMAGING 13:39 → EDSTATUS 13:40 | PROVIDERS: ATTEND Neurological Surgery | DX: S32.011D Stable burst fracture of first lumbar vertebra, subsequent encounter for fracture with routine healing (principal) ==